=== PATIENT | male | born 1975 | race Caucasian/White ===

== ENCOUNTER 2017-09-13 11:31 | Emergency (ER) | payer MEDICAID ==
[~2017-09-13] VITALS: Ht 175.3 cm; Wt 72.6 kg
[~2017-09-13 11:31] MED LIST: CLEOCIN150 MG ORAL
[2017-09-13] MEDS ORDERED: DIPHENHYDRAMINE25 M1 ORAL (12:17)
[2017-09-13] MEDS ORDERED: PREDNISONE20 MG ORAL (12:17)
[2017-09-13 12:28] VITALS: BP 104/71
--- NOTE | 2017-09-14 13:49 | Emergency Room Report ---
History of Present Illness General Chief Complaint: Allergic Reaction Source: Patient, Medical Record Present Illness HPI 41-year-old male presents here for usp clearance. Patient brought in by [employer]. In handcuffs. Patient is here for allergic reaction to his face. Notes swelling around his right eye. Started yesterday. Denies any pain. Denies any itchiness. States he is using new laundry detergent. States this happened previously with untreated detergent. Denies any other food or drug allergies. Denies any photophobia or blurry vision. Denies any tongue swelling or throat swelling. No other aggravating relieving factors. Denies any other associated symptoms Allergies: Coded Allergies: NO KNOWN DRUG ALLERGIES (Unverified Allergy, Unknown, 08/11/14) Uncoded Allergies: MILDEW (Allergy, Unknown, 09/13/17) Patient History Past Medical History: none Past Surgical History: none Pertinent Family History: none Social History: Denies: smoking, alcohol use, drug use Immunizations: UTD Reviewed Nursing Documentation: PMH: Agreed, PSxH: Agreed Nursing Documentation-PMH Past Medical History: No History, Except For Hx Cardiac Problems: No - HIV, neurosyphilis, Enlarge lymph nodes Review of Systems All Other Systems: negative except mentioned in HPI Physical Exam Vital Signs Date Time Temp Pulse Resp B/P (MAP) Pulse Ox O2 Delivery O2 Flow Rate FiO2 09/13/17 11:31 98.1 132 18 108/68 94 Room Air 98.1 Sp02 EP Interpretation: reviewed, normal General Appearance: no apparent distress, alert, GCS 15, non-toxic Head: normocephalic, atraumatic Eyes: bilateral eye normal inspection, bilateral eye PERRL, bilateral eye EOMI ENT: hearing grossly normal, normal pharynx, no angioedema, normal voice Neck: full range of motion, supple/symm/no masses Respiratory: chest non-tender, lungs clear, normal breath sounds, speaking full sentences Cardiovascular #1: regular rate, rhythm, no edema Cardiovascular #2: 2+ carotid (R), 2+ carotid (L), 2+ radial (R), 2+ radial (L) , 2+ dorsalis pedis (R), 2+ dorsalis pedis (L) Gastrointestinal: normal bowel sounds, non tender, soft, non-distended, no guarding, no rebound Rectal: deferred Genitourinary: normal inspection, no CVA tenderness Musculoskeletal: back normal, gait/station normal, normal range of motion, non- tender Neurologic: alert, oriented x3, responsive, motor strength/tone normal, sensory intact, speech normal Psychiatric: judgement/insight normal, memory normal, mood/affect normal, no suicidal/homicidal ideation Reflexes: 3+ bicep (R), 3+ bicep (L), 3+ tricep (R), 3+ tricep (L), 3+ knee (R) , 3+ knee (L) Skin: normal color, other - swelling around R eye. no induration. no fluctuance Lymphatic: no adenopathy Medical Decision Making Diagnostic Impression: Primary Impression: Medical clearance for incarceration Additional Impression: Allergic reaction Qualified Codes: T78.40XA - Allergy, unspecified, initial encounter ER Course Hospital Course 15-year-old male presents to ED for and usp clearance. Noting swelling around the right eye. No pain Clinical course Patient placed on stretcher. Handcuffs. After initial history, physical exam reveals a male in no acute distress. There is some swelling around the right eye. No fluctuance. No induration or erythema. No ocular involvement. Remainder of Physical exam was unremarkable. Clinical presentation consistent with allergic reaction likely due to new soap detergent. Given prednisone and Benadryl here I believe patient be safely discharged into police custody. Diagnosis - medical clearance for incarceration, allergic reaction stable and discharged into police custody with Rx prednisone, benedryl. f/up with PMD. return to ED if symptoms recur/worsen Last Vital Signs Date Time Temp Pulse Resp B/P (MAP) Pulse Ox O2 Delivery O2 Flow Rate FiO2 09/13/17 12:28 97.3 102 18 104/71 98 Room Air Status: improved Disposition: D/C TO LAW ENFORCEMENT IN [facility] Condition: Stable Scripts Prednisone* (PREDNISONE*) 20 Mg Tablet 40 MG ORAL DAILY, #10 TAB Prov: KETAN SCHWARTZ M.D. 09/13/17 Diphenhydramine Hcl* (DIPHENHYDRAMINE HCL*) 25 Mg Capsule 25 MG ORAL Q6H Y for Itching, #30 CAP 0 Refills Prov: KETAN SCHWARTZ M.D. 09/13/17 Departure Forms: Residential Clearance Patient Instructions: Allergies KETAN SCHWARTZ M.D. 3, 2018 13:49
== END 2017-09-13 13:00 ==
LOC: EMR 11:45
DX: T78.40XA Allergy, unspecified, initial encounter (principal); X58.XXXA Exposure to other specified factors, initial encounter
CPT/HCPCS: 99283; J7512

== ENCOUNTER 2017-11-22 16:52 | Inpatient (IN) | payer MEDICARE, MEDICAID ==
[~2017-11-22] VITALS: Ht 175.3 cm; Wt 68.0 kg
[~2017-11-22 16:52] MED LIST changes: +DIPHENHYDRAMINE25 M1 ORAL; +PREDNISONE20 MG ORAL
[2017-11-22 17:00] VITALS: BP 112/76
[2017-11-22] MEDS ORDERED: Vancomycin 1 GM in NS 275 ML IV ONE (17:15)
[2017-11-22] MEDS ORDERED: BACTRIM DS TAB1 EAC1 ORAL (17:46)
[2017-11-22] MEDS ORDERED: COLACE100 MG ORAL (17:46)
[2017-11-22] MEDS ORDERED: NORVIR100 MG ORAL (17:46)
[2017-11-22] MEDS ORDERED: PREZISTA600 MG ORAL (17:46)
[2017-11-22] MEDS ORDERED: DAPSONE100 MG ORAL (17:46)
[2017-11-22] MEDS ORDERED: FLUCONAZOLE100 MG ORAL (17:46)
[2017-11-22] MEDS ORDERED: FERROUS SULFAT325 MG ORAL (17:46)
[2017-11-22] MEDS ORDERED: VIREAD300 MG ORAL (17:46)
[2017-11-22 17:56] LABS: BASOPHILS % (AUTO) 1.4 % (0.0-2.0); EOSINOPHILS % (AUTO) 3.2 % (0.0-3.0); HEMATOCRIT 41.4 % (42.0-52.0); HEMOGLOBIN 13.1 G/DL (14.2-18.0); LYMPHOCYTES % (AUTO) 12.9 % (20.0-45.0); MEAN CORPUSCULAR VOLUME 88 FL (80-99); MONOCYTES % (AUTO) 7.8 % (1.0-10.0); NEUTROPHILS % (AUTO) 74.7 % (45.0-75.0); PLATELET COUNT 387 K/UL (150-450); RED BLOOD COUNT 4.68 M/UL (4.70-6.10); RED CELL DISTRIBUTION WIDTH 13.9 % (11.6-14.8); WHITE BLOOD COUNT 15.3 K/UL (4.8-10.8)
[2017-11-22 18:07] LABS: ANION GAP 8 mmol/L (5-15); BLOOD UREA NITROGEN 32 mg/dL (7-18); CALCIUM 8.2 MG/DL (8.5-10.1); CARBON DIOXIDE 23 MMOL/L (21-32); CHLORIDE 96 MMOL/L (98-107); CREATININE 1.4 MG/DL (0.55-1.30); POTASSIUM 5.5 MMOL/L (3.5-5.1); SODIUM 127 MMOL/L (136-145)
[2017-11-22 18:12] LABS: ALANINE AMINOTRANSFERASE 15 U/L (12-78); ALBUMIN 2.2 G/DL (3.4-5.0); ALBUMIN/GLOBULIN RATIO 0.4 (1.0-2.7); ALKALINE PHOSPHATASE 70 U/L (46-116); ASPARTATE AMINO TRANSFERASE 26 U/L (15-37); BILIRUBIN,TOTAL 0.2 MG/DL (0.2-1.0)
[2017-11-22] MEDS ORDERED: Gadavist 7.5mMol/7.5ml vial IV PRN (18:30)
[2017-11-22] MEDS ORDERED: Morphine Sulfate 4mg/ml Inj IVP ONE (20:00)
[2017-11-22 20:09] VITALS: BP 100/68
[2017-11-22] MEDS ORDERED: Solu-MEDROL 125mg Inj IVP ONE (20:15)
[2017-11-22] MEDS ORDERED: DiphenhydrAMINE 50mg/ml Inj IVP ONE (20:15)
--- NOTE | 2017-11-22 20:17 | Diagnostic Imaging Report ---
EXAM: MR Right Lower Extremity Without and With Intravenous Contrast, Tibia and Fibula CLINICAL HISTORY: PAIN TECHNIQUE: Multiplanar magnetic resonance images of the right tibia and fibula without and with intravenous contrast. COMPARISON: No relevant prior studies available. FINDINGS: Limitations: Limited due to motion. Bones/joints: Focal 15 x 7 x 16 mm edema/enhancement in the lateral aspect of the proximal tibial metadiaphysis extending to the cortex, which may be osteomyelitis, neoplasm, or other etiology. No definite acute fracture. No dislocation. Soft tissues: Nonspecific mild focal edema/enhancement in the gastrocnemius muscle approximately 1 cm, cannot exclude neoplasm or infection/inflammation. Subcutaneous edema. No definite discrete abscess collection. Subcutaneous/cutaneous thickening, cannot exclude neoplasm. IMPRESSION: 1. Focal 15 x 7 x 16 mm edema/enhancement in the lateral aspect of the proximal tibial metadiaphysis extending to the cortex, which may be osteomyelitis, neoplasm, or other etiology. 2. Nonspecific mild focal edema/enhancement in the gastrocnemius muscle approximately 1 cm, cannot exclude neoplasm or infection/inflammation. 3. Subcutaneous edema. No definite discrete abscess collection. Subcutaneous/cutaneous thickening, cannot exclude neoplasm.
[2017-11-22 20:37] VITALS: BP 114/71
--- NOTE | 2017-11-22 20:40 | Emergency Room Report ---
History of Present Illness General Chief Complaint: General Complaint Source: Patient Present Illness HPI 41-year-old male presents ED for evaluation. Patient referred from urgent care clinic. Urgent care clinic called stating that this patient is coming in for a cellulitis to his right leg. Has been there for many months now but not improving. Has taken multiple courses of antibiotics without improvement. Pain is throbbing, 8 out of 10, nonradiating. Denies fevers or chills. History of HIV is not compliant with his medication. Denies chest pain or shortness of breath. No other aggravating relieving factors. Denies any other associated symptoms Allergies: Coded Allergies: NO KNOWN DRUG ALLERGIES (Unverified Allergy, Unknown, 08/11/14) Uncoded Allergies: MILDEW (Allergy, Unknown, 09/13/17) Patient History Past Medical History: none Past Surgical History: none Pertinent Family History: none Social History: Denies: smoking, alcohol use, drug use Immunizations: UTD Reviewed Nursing Documentation: PMH: Agreed; PSxH: Agreed Nursing Documentation-PMH Past Medical History: No History, Except For Hx Cardiac Problems: No - HIV, neurosyphilis, Enlarge lymph nodes Review of Systems All Other Systems: negative except mentioned in HPI Physical Exam Vital Signs Date Time Temp Pulse Resp B/P (MAP) Pulse Ox O2 Delivery O2 Flow Rate FiO2 11/22/17 16:56 98.1 110 22 112/76 96 Room Air 98.1 Sp02 EP Interpretation: reviewed, normal General Appearance: no apparent distress, alert, GCS 15, non-toxic Head: normocephalic, atraumatic Eyes: bilateral eye normal inspection, bilateral eye PERRL ENT: hearing grossly normal, normal pharynx, no angioedema, normal voice Neck: full range of motion, supple/symm/no masses Respiratory: chest non-tender, lungs clear, normal breath sounds, speaking full sentences Cardiovascular #1: regular rate, rhythm, no edema Cardiovascular #2: 2+ carotid (R), 2+ carotid (L), 2+ radial (R), 2+ radial (L) , 2+ dorsalis pedis (R), 2+ dorsalis pedis (L) Gastrointestinal: normal bowel sounds, non tender, soft, non-distended, no guarding, no rebound Rectal: deferred Genitourinary: normal inspection, no CVA tenderness Musculoskeletal: back normal, gait/station normal, normal range of motion, swelling Neurologic: alert, oriented x3, responsive, motor strength/tone normal, sensory intact, speech normal Psychiatric: judgement/insight normal, memory normal, mood/affect normal, no suicidal/homicidal ideation Reflexes: 3+ bicep (R), 3+ bicep (L), 3+ tricep (R), 3+ tricep (L), 3+ knee (R) , 3+ knee (L) Skin: other Lymphatic: no adenopathy, other - Multiple enlarged pustular raised lesions noted to the anterior surface of the right lower extremity. No fluctuance or discharge Medical Decision Making Diagnostic Impression: Primary Impression: Cellulitis of right lower extremity ER Course Hospital Course 41-year-old male presents to ED with redness, swelling to RLE Differential diagnoses include: Cellulitis, DVT, abscess, rash. Clinical course Patient placed on stretcher. After initial history, physical exam reveals male in no acute distress. On exam there is a large area of multiple pustular heads raised, indurated and erythematous to the right anterior mora. Patient states it is been there for many months now. Labs reviewed - leukocytosis, Hb/Hct stable, Na 127, K 5.5 Discussed case with surgery Dr Dover; he recommended MRI to look for possible neoplasm versus osteomyelitis MRI shows edema/enhancement in the lateral aspect of the proximal tibial metadiaphysis extending to the cortex, which may be osteomyelitis, neoplasm vancomycin given. Case discussed with Dr Almodovar and he agreed to accept the patient to his service for further care and support Diagnosis - cellulitis of right lower extremity Patient admitted to floor in serious condition Labs Test 11/22/17 17:38 White Blood Count 15.3 K/UL (4.8-10.8) Red Blood Count 4.68 M/UL (4.70-6.10) Hemoglobin 13.1 G/DL (14.2-18.0) Hematocrit 41.4 % (42.0-52.0) Mean Corpuscular Volume 88 FL (80-99) Mean Corpuscular Hemoglobin 28.0 PG (27.0-31.0) Mean Corpuscular Hemoglobin Concent 31.7 G/DL (32.0-36.0) Red Cell Distribution Width 13.9 % (11.6-14.8) Platelet Count 387 K/UL (150-450) Mean Platelet Volume 6.3 FL (6.5-10.1) Neutrophils (%) (Auto) 74.7 % (45.0-75.0) Lymphocytes (%) (Auto) 12.9 % (20.0-45.0) Monocytes (%) (Auto) 7.8 % (1.0-10.0) Eosinophils (%) (Auto) 3.2 % (0.0-3.0) Basophils (%) (Auto) 1.4 % (0.0-2.0) Sodium Level 127 MMOL/L (136-145) Potassium Level 5.5 MMOL/L (3.5-5.1) Chloride Level 96 MMOL/L (98-107) Carbon Dioxide Level 23 MMOL/L (21-32) Anion Gap 8 mmol/L (5-15) Blood Urea Nitrogen 32 mg/dL (7-18) Creatinine 1.4 MG/DL (0.55-1.30) Estimat Glomerular Filtration Rate 55.6 mL/min (>60) Glucose Level 88 MG/DL (74-106) Lactic Acid Level 0.80 mmol/L (0.66-2.22) Calcium Level 8.2 MG/DL (8.5-10.1) Total Bilirubin 0.2 MG/DL (0.2-1.0) Aspartate Amino Transf (AST/SGOT) 26 U/L (15-37) Alanine Aminotransferase (ALT/SGPT) 15 U/L (12-78) Alkaline Phosphatase 70 U/L (46-116) Total Protein 7.3 G/DL (6.4-8.2) Albumin 2.2 G/DL (3.4-5.0) Globulin 5.1 g/dL Albumin/Globulin Ratio 0.4 (1.0-2.7) CT/MRI/US Diagnostic Results CT/MRI/US Diagnostic Results : Imaging Test Ordered: MRI RLE Impression Focal 15 x 7 x 16 mm edema/enhancement in the lateral aspect of the proximal tibial metadiaphysis extending to the cortex, which may be osteomyelitis, neoplasm, or other etiology. 2. Nonspecific mild focal edema/enhancement in the gastrocnemius muscle approximately 1 cm, cannot exclude neoplasm or infection/inflammation. 3. Subcutaneous edema. No definite discrete abscess collection. Subcutaneous/ cutaneous thickening, cannot exclude neoplasm. Last Vital Signs Date Time Temp Pulse Resp B/P (MAP) Pulse Ox O2 Delivery O2 Flow Rate FiO2 11/22/17 20:18 97.8 11/22/17 20:09 106 18 100/68 97 Room Air Status: improved Disposition: ADMITTED INPATIENT Condition: Serious Referrals: NON PHYSICIAN (PCP) José Luis Romero MD November 22, 2017 20:40
[2017-11-22] MEDS ORDERED: Morphine Sulfate 4mg/ml Inj IVP PRN (21:30)
[2017-11-22] MEDS: Albuterol/Ipratropium 3ml neb HHN PRN (23:02)
[2017-11-22 23:13] LABS: APPEARANCE,URINE CLEAR; BILIRUBIN, URINE NEGATIVE (NEGATIVE); COLOR,URINE PALE YELLOW; GLUCOSE, URINE (UA) NEGATIVE (NEGATIVE); KETONES,URINE NEGATIVE (NEGATIVE); LEUKOCYTE ESTERASE ,URINE NEGATIVE (NEGATIVE); NITRITE,URINE NEGATIVE (NEGATIVE); PH,URINE 6 (4.5-8.0); PROTEIN,URINE NEGATIVE (NEGATIVE); UROBILINOGEN,URINE NORMAL MG/DL (0.0-1.0)
[2017-11-22] MEDS: Piperacillin/Tazobactam 4.5 GM in NS 110 ML IVPB SCH (23:44)
[2017-11-23] MEDS: Morphine Sulfate 4mg/ml Inj IVP PRN ×3 (00:58→15:17)
[2017-11-23 04:12] VITALS: BP 97/57
[2017-11-23] MEDS: Albuterol/Ipratropium 3ml neb HHN PRN (04:15)
[2017-11-23] MEDS: Vancomycin 750mg/NS 250ml IVPB SCH ×2 (04:39→17:57)
[2017-11-23] MEDS: Piperacillin/Tazobactam 4.5 GM in NS 110 ML IVPB SCH ×3 (06:08→23:04)
[2017-11-23 07:28] LABS: BASOPHILS % (AUTO) 0.8 % (0.0-2.0); EOSINOPHILS % (AUTO) 3.3 % (0.0-3.0); HEMATOCRIT 35.5 % (42.0-52.0); HEMOGLOBIN 11.5 G/DL (14.2-18.0); LYMPHOCYTES % (AUTO) 14.7 % (20.0-45.0); MEAN CORPUSCULAR VOLUME 89 FL (80-99); MONOCYTES % (AUTO) 6.9 % (1.0-10.0); NEUTROPHILS % (AUTO) 74.3 % (45.0-75.0); PLATELET COUNT 275 K/UL (150-450); RED CELL DISTRIBUTION WIDTH 13.6 % (11.6-14.8); WHITE BLOOD COUNT 12.7 K/UL (4.8-10.8)
[2017-11-23 07:49] LABS: ALANINE AMINOTRANSFERASE 15 U/L (12-78); ALBUMIN 1.8 G/DL (3.4-5.0); ALKALINE PHOSPHATASE 57 U/L (46-116); ANION GAP 5 mmol/L (5-15); ASPARTATE AMINO TRANSFERASE 18 U/L (15-37); BILIRUBIN,DIRECT < 0.1 MG/DL (0.0-0.3); BILIRUBIN,TOTAL 0.2 MG/DL (0.2-1.0); BLOOD UREA NITROGEN 18 mg/dL (7-18); CALCIUM 7.7 MG/DL (8.5-10.1); CARBON DIOXIDE 29 MMOL/L (21-32); CHLORIDE 102 MMOL/L (98-107); CREATININE 1.3 MG/DL (0.55-1.30); POTASSIUM 4.5 MMOL/L (3.5-5.1); SODIUM 135 MMOL/L (136-145)
[2017-11-23 08:00] VITALS: BP 105/66
--- NOTE | 2017-11-23 08:47 | Diagnostic Imaging Report ---
INDICATION: Cough COMPARISON: Chest x-ray dated 08/11/14 FINDINGS: Single frontal view demonstrates a normal cardiomediastinal silhouette. Opacification of the right mid to lower lung zone with a small pleural effusion. Patchy centrilobular nodules seen within the left lower lung zone. The visualized osseous structures are within normal limits. IMPRESSION: Opacification of the right mid to lower lung zone with a small pleural effusion. Patchy centrilobular nodules seen within the left lower lung zone.
[2017-11-23] MEDS ORDERED: Heparin 5000 units/ml inj SUBQ SCH (09:00)
--- NOTE | 2017-11-23 09:28 | Consultation ---
History of Present Illness General Date patient seen: November 23, 2017 Chief Complaint: General Complaint Reason for Consultation: right lower extremity wound Present Illness HPI 41 year old male with history of HIV presented with complaints of RLE pain and edema. States that 8 months ago began to note a wound on right leg. Since has been worsening. States that when he gets "Bactrim" it gets better a little but when not on bactrim it gets worse again. states he has been looking online and believes it to be cellulitis. surgery called to evaluate wound on right leg given extensive. patient seen and wound evaluated. very concerning because this looks like a tumor. 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 He was told he would need chemotherapy. since it seems as he has been in denial and has been telling people it is an infection that he knows will and has gotten better prior with "Bactrim" Allergies: Coded Allergies: NO KNOWN DRUG ALLERGIES (Unverified Allergy, Unknown, 08/11/14) Uncoded Allergies: MILDEW (Allergy, Unknown, 09/13/17) Medication History Scheduled Clindamycin HCl (Clindamycin HCl), 150 MG ORAL EVERY 6 HOURS Dapsone* (Dapsone*), 100 MG ORAL DAILY, (Reported) Darunavir Ethanolate* (Prezista*), 800 MG ORAL DAILY, (Reported) Docusate Sodium* (Colace*), 100 MG ORAL DAILY, (Reported) Ferrous Sulfate* (Ferrous Sulfate*), 325 MG ORAL BID, (Reported) Fluconazole (Fluconazole), 200 MG ORAL DAILY, (Reported) Prednisone* (Prednisone*), 40 MG ORAL DAILY Ritonavir* (Norvir*), 100 MG ORAL DAILY, (Reported) Tenofovir Disoproxil Fumarate* (Viread*), 300 MG ORAL DAILY, (Reported) Trimethoprim/Sulfamethoxazole 160/800* (Bactrim Ds Tablet*), 1 TAB ORAL DAILY, ( Reported) Scheduled PRN Diphenhydramine Hcl* (Diphenhydramine Hcl*), 25 MG ORAL Q6H PRN for Itching Patient History History Provided By: Patient, Medical Record, PMD Healthcare decision maker N Resuscitation status Full Code Advanced Directive on File No Past Medical/Surgical History Past Medical/Surgical History: (1) Kaposis sarcoma (2) Dyspnea (3) Dyspnea (4) Hyponatremia (5) Allergic reaction (6) Medical clearance for incarceration (7) Leg pain (8) Cellulitis (9) Cellulitis of right lower extremity Review of Systems All Other Systems: negative except mentioned in HPI Physical Exam General Appearance: no apparent distress Lines, tubes and drains: peripheral HEENT: normocephalic Neck: non-tender Respiratory/Chest: chest wall non-tender, lungs clear, normal breath sounds, no respiratory distress, no accessory muscle use Cardiovascular/Chest: normal peripheral pulses, normal rate Abdomen: normal bowel sounds, non tender, soft, no organomegaly, no mass Extremities: other - see wound photos of right leg Skin Exam: warm/dry Neurologic: alert, oriented x 3, responsive Last 24 Hour Vital Signs Date Time Temp Pulse Resp B/P (MAP) Pulse Ox O2 Delivery O2 Flow Rate FiO2 11/23/17 08:34 94 18 Room Air 11/23/17 06:37 20 95 Nasal Cannula 2.0 11/23/17 04:22 89 20 99 Room Air 21 11/23/17 04:16 81 18 97 Room Air 21 11/23/17 04:12 97.9 104 20 97/57 93 Room Air 97.9 11/23/17 01:28 97.5 11/23/17 00:58 97.5 11/22/17 23:17 77 18 99 Room Air 21 11/22/17 23:02 66 18 98 Room Air 21 11/22/17 20:40 97.5 106 20 114/71 96 Room Air 97.5 11/22/17 20:37 97.5 106 20 114/71 96 Room Air 97.5 11/22/17 20:18 97.8 11/22/17 20:09 97.8 106 18 100/68 97 Room Air 97.8 11/22/17 17:00 98.1 80 22 112/76 96 Room Air 98.1 11/22/17 16:56 98.1 110 22 112/76 96 Room Air 98.1 Intake and Output 11/22/17 11/23/17 19:00 07:00 Intake Total 500 ml Output Total 0 ml 1200 ml Balance 0 ml -700 ml Intake IV Total 500 ml Output Urine Total 0 ml 1200 ml # Voids 4 Laboratory Tests Test 11/22/17 17:38 11/22/17 22:50 11/23/17 05:35 White Blood Count 15.3 K/UL (4.8-10.8) H 12.7 K/UL (4.8-10.8) H Red Blood Count 4.68 M/UL (4.70-6.10) L 4.00 M/UL (4.70-6.10) L Hemoglobin 13.1 G/DL (14.2-18.0) L 11.5 G/DL (14.2-18.0) L Hematocrit 41.4 % (42.0-52.0) L 35.5 % (42.0-52.0) L Mean Corpuscular Volume 88 FL (80-99) 89 FL (80-99) Mean Corpuscular Hemoglobin 28.0 PG (27.0-31.0) 28.7 PG (27.0-31.0) Mean Corpuscular Hemoglobin Concent 31.7 G/DL (32.0-36.0) L 32.3 G/DL (32.0-36.0) Red Cell Distribution Width 13.9 % (11.6-14.8) 13.6 % (11.6-14.8) Platelet Count 387 K/UL (150-450) 275 K/UL (150-450) Mean Platelet Volume 6.3 FL (6.5-10.1) L 6.1 FL (6.5-10.1) L Neutrophils (%) (Auto) 74.7 % (45.0-75.0) 74.3 % (45.0-75.0) Lymphocytes (%) (Auto) 12.9 % (20.0-45.0) L 14.7 % (20.0-45.0) L Monocytes (%) (Auto) 7.8 % (1.0-10.0) 6.9 % (1.0-10.0) Eosinophils (%) (Auto) 3.2 % (0.0-3.0) H 3.3 % (0.0-3.0) H Basophils (%) (Auto) 1.4 % (0.0-2.0) 0.8 % (0.0-2.0) Sodium Level 127 MMOL/L (136-145) L 135 MMOL/L (136-145) L Potassium Level 5.5 MMOL/L (3.5-5.1) H 4.5 MMOL/L (3.5-5.1) Chloride Level 96 MMOL/L (98-107) L 102 MMOL/L (98-107) Carbon Dioxide Level 23 MMOL/L (21-32) 29 MMOL/L (21-32) Anion Gap 8 mmol/L (5-15) 5 mmol/L (5-15) Blood Urea Nitrogen 32 mg/dL (7-18) H 18 mg/dL (7-18) Creatinine 1.4 MG/DL (0.55-1.30) H 1.3 MG/DL (0.55-1.30) Estimat Glomerular Filtration Rate 55.6 mL/min (>60) > 60 mL/min (>60) Glucose Level 88 MG/DL (74-106) 98 MG/DL (74-106) Lactic Acid Level 0.80 mmol/L (0.66-2.22) Calcium Level 8.2 MG/DL (8.5-10.1) L 7.7 MG/DL (8.5-10.1) L Total Bilirubin 0.2 MG/DL (0.2-1.0) 0.2 MG/DL (0.2-1.0) Aspartate Amino Transf (AST/SGOT) 26 U/L (15-37) 18 U/L (15-37) Alanine Aminotransferase (ALT/SGPT) 15 U/L (12-78) 15 U/L (12-78) Alkaline Phosphatase 70 U/L (46-116) 57 U/L (46-116) Total Protein 7.3 G/DL (6.4-8.2) 6.0 G/DL (6.4-8.2) L Albumin 2.2 G/DL (3.4-5.0) L 1.8 G/DL (3.4-5.0) L Globulin 5.1 g/dL Albumin/Globulin Ratio 0.4 (1.0-2.7) L Urine Color Pale yellow Urine Appearance Clear Urine pH 6 (4.5-8.0) Urine Specific [place] 1.020 (1.005-1.035) Urine Protein Negative (NEGATIVE) Urine Glucose (UA) Negative (NEGATIVE) Urine Ketones Negative (NEGATIVE) Urine Occult Blood Negative (NEGATIVE) Urine Nitrite Negative (NEGATIVE) Urine Bilirubin Negative (NEGATIVE) Urine Urobilinogen Normal MG/DL (0.0-1.0) Urine Leukocyte Esterase Negative (NEGATIVE) Urine Random Sodium 30 mmol/L (20-110) Urine Creatinine 116.7 MG/DL (30.0-125.0) Magnesium Level 1.8 MG/DL (1.8-2.4) Direct Bilirubin < 0.1 MG/DL (0.0-0.3) Height (Feet): 5 Height (Inches): 9.00 Weight (Pounds): 150 Medications Current Medications Medications (Trade) Dose Ordered Sig/Roverto Route PRN Reason Start Time Stop Time Status Last Admin Dose Admin Acetaminophen (Tylenol) 650 mg Q6H PRN ORAL Mild Pain/Temp > 100.5 11/22/17 21:30 12/22/17 21:29 Albuterol/ Ipratropium (Albuterol/ Ipratropium) 3 ml Q4H PRN HHN Shortness of Breath 11/22/17 21:30 11/27/17 21:29 11/23/17 04:15 Diphenhydramine HCl (Benadryl) 25 mg Q6H PRN ORAL Itching 11/22/17 21:30 12/22/17 21:29 Heparin Sodium (Porcine) (Heparin 5000 units/ml) 5,000 units EVERY 12 HOURS SUBQ 11/23/17 09:00 12/23/17 08:59 11/23/17 09:02 Morphine Sulfate (Morphine Sulfate) 2 mg Q4H PRN IVP Moderate Pain (Pain Scale 4-6) 11/22/17 21:30 11/29/17 21:29 Morphine Sulfate (Morphine Sulfate) 4 mg Q4H PRN IVP Severe Pain (Pain Scale 7-10) 11/22/17 21:30 11/29/17 21:29 11/23/17 08:58 Ondansetron HCl (Zofran) 4 mg Q6H PRN IVP Nausea & Vomiting 11/22/17 21:30 12/22/17 21:29 Piperacillin Sod/ Tazobactam Sod 4.5 gm/Sodium Chloride 110 ml @ 27.5 mls/hr Q8H IVPB 11/22/17 23:00 5/18/18 22:59 11/23/17 06:08 Sodium Chloride 1,000 ml @ 125 mls/hr Q8H IV 11/22/17 22:00 11/23/17 21:59 11/23/17 06:07 Vancomycin HCl (Vanco rx to dose) 1 ea DAILY PRN MISC Per rx protocol 11/22/17 21:30 12/22/17 21:29 Vancomycin/Sodium Chloride 250 ml @ 166.667 mls/hr Q12H IVPB 11/23/17 05:00 11/28/17 04:59 11/23/17 04:39 Assessment/Plan Problem List: (1) Kaposis sarcoma Assessment & Plan: 41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 possible superimposed infection as well. mild cellulitis in leg and some edema. afebrile, HD stable, leukocytosis improving. -explained to patient how important it is for him to follow up with oncologist as an outpatient for treatment of this as he has been instructed two months ago -explained that abx would help with infection if superimposed but underlying etiology is the tumor -no acute surgical intervention needed -no biopsy needed given had one two months ago and diagnosis made at [facility] to d/c from surgical standpoint. follow up with oncologist as an outpatient. ICD Codes: C46.9 - Kaposi's sarcoma, unspecified SNOMED: [id number] Status: stable Curtis Dover November 23, 2017 09:28
--- NOTE | 2017-11-23 10:26 | Diagnostic Imaging Report ---
INDICATION: Increasing creatinine TECHNIQUE: Real time imaging of the kidneys is performed in sagittal and transverse projections. COMPARISON: None FINDINGS: The kidneys are normal in size, with the left kidney measuring 12 cm and the right measuring 11.4 cm. There is no evidence of hydronephrosis or solid mass lesions. 9 mm left renal cyst. No sonographic evidence of renal calculi. The bladder is within normal. Small free fluid. IMPRESSION: 9 mm left renal cyst. Otherwise normal renal ultrasound.
--- NOTE | 2017-11-23 11:13 | Infectious Diseases Prog Note ---
Assessment/Plan Assessment/Plan Full consult dictated: A) 1) right leg cellulitis, [place], ? osteomyelitis, leukocytosis 2) hiv, aids, pmh noted 3) allergies - nkda P) 1) vancomycin, zosyn 2) consider bone scan, check sr, crp, labs, bc 3) hem/onc evaluation 4) anti-retroviral therapy - norvir, viread and prezista 5) thank you Subjective Allergies: Coded Allergies: NO KNOWN DRUG ALLERGIES (Unverified Allergy, Unknown, 08/11/14) Uncoded Allergies: MILDEW (Allergy, Unknown, 09/13/17) Objective Vital Signs Last 24 Hour Vital Signs Date Time Temp Pulse Resp B/P (MAP) Pulse Ox O2 Delivery O2 Flow Rate FiO2 11/23/17 08:34 94 18 Room Air 11/23/17 06:37 20 95 Nasal Cannula 2.0 11/23/17 04:22 89 20 99 Room Air 21 11/23/17 04:16 81 18 97 Room Air 21 11/23/17 04:12 97.9 104 20 97/57 93 Room Air 97.9 11/23/17 01:28 97.5 11/23/17 00:58 97.5 11/22/17 23:17 77 18 99 Room Air 21 11/22/17 23:02 66 18 98 Room Air 21 11/22/17 20:40 97.5 106 20 114/71 96 Room Air 97.5 11/22/17 20:37 97.5 106 20 114/71 96 Room Air 97.5 11/22/17 20:18 97.8 11/22/17 20:09 97.8 106 18 100/68 97 Room Air 97.8 11/22/17 17:00 98.1 80 22 112/76 96 Room Air 98.1 11/22/17 16:56 98.1 110 22 112/76 96 Room Air 98.1 Height (Feet): 5 Height (Inches): 9.00 Weight (Pounds): 150 Laboratory Tests Test 11/22/17 17:38 11/22/17 22:50 11/23/17 05:35 White Blood Count 15.3 K/UL (4.8-10.8) H 12.7 K/UL (4.8-10.8) H Red Blood Count 4.68 M/UL (4.70-6.10) L 4.00 M/UL (4.70-6.10) L Hemoglobin 13.1 G/DL (14.2-18.0) L 11.5 G/DL (14.2-18.0) L Hematocrit 41.4 % (42.0-52.0) L 35.5 % (42.0-52.0) L Mean Corpuscular Volume 88 FL (80-99) 89 FL (80-99) Mean Corpuscular Hemoglobin 28.0 PG (27.0-31.0) 28.7 PG (27.0-31.0) Mean Corpuscular Hemoglobin Concent 31.7 G/DL (32.0-36.0) L 32.3 G/DL (32.0-36.0) Red Cell Distribution Width 13.9 % (11.6-14.8) 13.6 % (11.6-14.8) Platelet Count 387 K/UL (150-450) 275 K/UL (150-450) Mean Platelet Volume 6.3 FL (6.5-10.1) L 6.1 FL (6.5-10.1) L Neutrophils (%) (Auto) 74.7 % (45.0-75.0) 74.3 % (45.0-75.0) Lymphocytes (%) (Auto) 12.9 % (20.0-45.0) L 14.7 % (20.0-45.0) L Monocytes (%) (Auto) 7.8 % (1.0-10.0) 6.9 % (1.0-10.0) Eosinophils (%) (Auto) 3.2 % (0.0-3.0) H 3.3 % (0.0-3.0) H Basophils (%) (Auto) 1.4 % (0.0-2.0) 0.8 % (0.0-2.0) Sodium Level 127 MMOL/L (136-145) L 135 MMOL/L (136-145) L Potassium Level 5.5 MMOL/L (3.5-5.1) H 4.5 MMOL/L (3.5-5.1) Chloride Level 96 MMOL/L (98-107) L 102 MMOL/L (98-107) Carbon Dioxide Level 23 MMOL/L (21-32) 29 MMOL/L (21-32) Anion Gap 8 mmol/L (5-15) 5 mmol/L (5-15) Blood Urea Nitrogen 32 mg/dL (7-18) H 18 mg/dL (7-18) Creatinine 1.4 MG/DL (0.55-1.30) H 1.3 MG/DL (0.55-1.30) Estimat Glomerular Filtration Rate 55.6 mL/min (>60) > 60 mL/min (>60) Glucose Level 88 MG/DL (74-106) 98 MG/DL (74-106) Lactic Acid Level 0.80 mmol/L (0.66-2.22) Calcium Level 8.2 MG/DL (8.5-10.1) L 7.7 MG/DL (8.5-10.1) L Total Bilirubin 0.2 MG/DL (0.2-1.0) 0.2 MG/DL (0.2-1.0) Aspartate Amino Transf (AST/SGOT) 26 U/L (15-37) 18 U/L (15-37) Alanine Aminotransferase (ALT/SGPT) 15 U/L (12-78) 15 U/L (12-78) Alkaline Phosphatase 70 U/L (46-116) 57 U/L (46-116) Total Protein 7.3 G/DL (6.4-8.2) 6.0 G/DL (6.4-8.2) L Albumin 2.2 G/DL (3.4-5.0) L 1.8 G/DL (3.4-5.0) L Globulin 5.1 g/dL Albumin/Globulin Ratio 0.4 (1.0-2.7) L Urine Color Pale yellow Urine Appearance Clear Urine pH 6 (4.5-8.0) Urine Specific [place] 1.020 (1.005-1.035) Urine Protein Negative (NEGATIVE) Urine Glucose (UA) Negative (NEGATIVE) Urine Ketones Negative (NEGATIVE) Urine Occult Blood Negative (NEGATIVE) Urine Nitrite Negative (NEGATIVE) Urine Bilirubin Negative (NEGATIVE) Urine Urobilinogen Normal MG/DL (0.0-1.0) Urine Leukocyte Esterase Negative (NEGATIVE) Urine Random Sodium 30 mmol/L (20-110) Urine Creatinine 116.7 MG/DL (30.0-125.0) Magnesium Level 1.8 MG/DL (1.8-2.4) Direct Bilirubin < 0.1 MG/DL (0.0-0.3) Current Medications Medications (Trade) Dose Ordered Sig/Roverto Route PRN Reason Start Time Stop Time Status Last Admin Dose Admin Acetaminophen (Tylenol) 650 mg Q6H PRN ORAL Mild Pain/Temp > 100.5 11/22/17 21:30 12/22/17 21:29 Albuterol/ Ipratropium (Albuterol/ Ipratropium) 3 ml Q4H PRN HHN Shortness of Breath 11/22/17 21:30 11/27/17 21:29 11/23/17 04:15 Diphenhydramine HCl (Benadryl) 25 mg Q6H PRN ORAL Itching 11/22/17 21:30 12/22/17 21:29 Heparin Sodium (Porcine) (Heparin 5000 units/ml) 5,000 units EVERY 12 HOURS SUBQ 11/23/17 09:00 12/23/17 08:59 11/23/17 09:02 Morphine Sulfate (Morphine Sulfate) 2 mg Q4H PRN IVP Moderate Pain (Pain Scale 4-6) 11/22/17 21:30 11/29/17 21:29 Morphine Sulfate (Morphine Sulfate) 4 mg Q4H PRN IVP Severe Pain (Pain Scale 7-10) 11/22/17 21:30 11/29/17 21:29 11/23/17 08:58 Ondansetron HCl (Zofran) 4 mg Q6H PRN IVP Nausea & Vomiting 11/22/17 21:30 12/22/17 21:29 Piperacillin Sod/ Tazobactam Sod 4.5 gm/Sodium Chloride 110 ml @ 27.5 mls/hr Q8H IVPB 11/22/17 23:00 11/29/17 22:59 11/23/17 06:08 Sodium Chloride 1,000 ml @ 125 mls/hr Q8H IV 11/22/17 22:00 11/23/17 21:59 11/23/17 06:07 Vancomycin HCl (Vanco rx to dose) 1 ea DAILY PRN MISC Per rx protocol 11/22/17 21:30 12/22/17 21:29 Vancomycin/Sodium Chloride 250 ml @ 166.667 mls/hr Q12H IVPB 11/23/17 05:00 11/28/17 04:59 11/23/17 04:39 LIVIER AMAYA November 23, 2017 11:13
--- NOTE | 2017-11-23 11:40 | History and Physical ---
History of Present Illness General Date patient seen: November 23, 2017 Time patient seen: 11:40 Reason for Hospitalization: RLE cellulitis Present Illness HPI 41y/o male with pmh of HIV/AIDS (noncompliant with HAART) who presents with RLE swelling/pain/redness. Pt states that 8 months he noted wound/skin lesions on RLE which has been progressively worsening. He states that he has been given antibiotics such as keflex for it but bactrim IV works the best. Pt notes having had a biopsy of skin lesions and was diagnosed with Kaposi Sarcoma (pt does have path report). C/o subjective fevers/chills. Denies n/v, d/c, chest pain, SOB, abd pain. In ED, pt had MRI tib/fib which showed focal 15 x 7 x 16 mm edema/enhancement in the lateral aspect of the proximal tibial metadiaphysis extending to the cortex, which may be osteomyelitis, neoplasm, or other etiology. There was concern for sepsis given leukocytosis, tachycardia. Pt given vanco. Allergies: Coded Allergies: NO KNOWN DRUG ALLERGIES (Unverified Allergy, Unknown, 08/11/14) Uncoded Allergies: MILDEW (Allergy, Unknown, 09/13/17) Medication History Scheduled Clindamycin HCl (Clindamycin HCl), 150 MG ORAL EVERY 6 HOURS Dapsone* (Dapsone*), 100 MG ORAL DAILY, (Reported) Darunavir Ethanolate* (Prezista*), 800 MG ORAL DAILY, (Reported) Docusate Sodium* (Colace*), 100 MG ORAL DAILY, (Reported) Ferrous Sulfate* (Ferrous Sulfate*), 325 MG ORAL BID, (Reported) Fluconazole (Fluconazole), 200 MG ORAL DAILY, (Reported) Prednisone* (Prednisone*), 40 MG ORAL DAILY Ritonavir* (Norvir*), 100 MG ORAL DAILY, (Reported) Tenofovir Disoproxil Fumarate* (Viread*), 300 MG ORAL DAILY, (Reported) Trimethoprim/Sulfamethoxazole 160/800* (Bactrim Ds Tablet*), 1 TAB ORAL DAILY, ( Reported) Scheduled PRN Diphenhydramine Hcl* (Diphenhydramine Hcl*), 25 MG ORAL Q6H PRN for Itching Patient History History Provided By: Patient, Medical Record Healthcare decision maker N Resuscitation status Full Code Advanced Directive on File No Past Medical/Surgical History Past Medical/Surgical History: (1) HIV/AIDS (2) Kaposi sarcoma Family History Family History: Patient reports no known family medical history. Social History Social History: (1) No significant social history Review of Systems Constitutional: Reports: malaise, weakness Eye: Reports: no symptoms ENT: Reports: no symptoms Respiratory: Reports: no symptoms Cardiovascular: Reports: no symptoms Gastrointestinal: Reports: no symptoms Genitourinary: Reports: no symptoms Musculoskeletal: Reports: muscle pain Skin: Reports: lesions Psychiatric: Reports: no symptoms Neurological: Reports: no symptoms Endocrine: Reports: no symptoms Hematologic/Lymphatic: Reports: no symptoms Physical Exam Physical Exam Narrative General: alert, cooperative, no distress, appears stated age Head: normocephalic, without obvious abnormality, atraumatic Eyes: conjunctivae/corneas clear. PERRL, EOM's intact Throat: lips, mucosa, and tongue normal. MMM Neck: supple, symmetrical, trachea midline, and no JVD Lungs: clear to auscultation bilaterally Heart: regular rate and rhythm, S1, S2 normal, no murmur, click, rub or gallop Abdomen: soft, non-tender, non-distended, bowel sounds normal; no masses or organomegaly Extremities: RLE w/ TTP/erythema/edema w/ raised lesions (see photos) Pulses: 2+ and symmetric Neurologic: grossly normal, no focal deficits Last 24 Hour Vital Signs Date Time Temp Pulse Resp B/P (MAP) Pulse Ox O2 Delivery O2 Flow Rate FiO2 11/23/17 08:34 94 18 Room Air 11/23/17 06:37 20 95 Nasal Cannula 2.0 11/23/17 04:22 89 20 99 Room Air 21 11/23/17 04:16 81 18 97 Room Air 21 11/23/17 04:12 97.9 104 20 97/57 93 Room Air 97.9 11/23/17 01:28 97.5 11/23/17 00:58 97.5 11/22/17 23:17 77 18 99 Room Air 21 11/22/17 23:02 66 18 98 Room Air 21 11/22/17 20:40 97.5 106 20 114/71 96 Room Air 97.5 11/22/17 20:37 97.5 106 20 114/71 96 Room Air 97.5 11/22/17 20:18 97.8 5/11/18 20:09 97.8 106 18 100/68 97 Room Air 97.8 11/22/17 17:00 98.1 80 22 112/76 96 Room Air 98.1 11/22/17 16:56 98.1 110 22 112/76 96 Room Air 98.1 Intake and Output 11/22/17 11/23/17 19:00 07:00 Intake Total 500 ml Output Total 0 ml 1200 ml Balance 0 ml -700 ml Intake IV Total 500 ml Output Urine Total 0 ml 1200 ml # Voids 4 Laboratory Tests Test 11/22/17 17:38 11/22/17 22:50 11/23/17 05:35 White Blood Count 15.3 K/UL (4.8-10.8) H 12.7 K/UL (4.8-10.8) H Red Blood Count 4.68 M/UL (4.70-6.10) L 4.00 M/UL (4.70-6.10) L Hemoglobin 13.1 G/DL (14.2-18.0) L 11.5 G/DL (14.2-18.0) L Hematocrit 41.4 % (42.0-52.0) L 35.5 % (42.0-52.0) L Mean Corpuscular Volume 88 FL (80-99) 89 FL (80-99) Mean Corpuscular Hemoglobin 28.0 PG (27.0-31.0) 28.7 PG (27.0-31.0) Mean Corpuscular Hemoglobin Concent 31.7 G/DL (32.0-36.0) L 32.3 G/DL (32.0-36.0) Red Cell Distribution Width 13.9 % (11.6-14.8) 13.6 % (11.6-14.8) Platelet Count 387 K/UL (150-450) 275 K/UL (150-450) Mean Platelet Volume 6.3 FL (6.5-10.1) L 6.1 FL (6.5-10.1) L Neutrophils (%) (Auto) 74.7 % (45.0-75.0) 74.3 % (45.0-75.0) Lymphocytes (%) (Auto) 12.9 % (20.0-45.0) L 14.7 % (20.0-45.0) L Monocytes (%) (Auto) 7.8 % (1.0-10.0) 6.9 % (1.0-10.0) Eosinophils (%) (Auto) 3.2 % (0.0-3.0) H 3.3 % (0.0-3.0) H Basophils (%) (Auto) 1.4 % (0.0-2.0) 0.8 % (0.0-2.0) Sodium Level 127 MMOL/L (136-145) L 135 MMOL/L (136-145) L Potassium Level 5.5 MMOL/L (3.5-5.1) H 4.5 MMOL/L (3.5-5.1) Chloride Level 96 MMOL/L (98-107) L 102 MMOL/L (98-107) Carbon Dioxide Level 23 MMOL/L (21-32) 29 MMOL/L (21-32) Anion Gap 8 mmol/L (5-15) 5 mmol/L (5-15) Blood Urea Nitrogen 32 mg/dL (7-18) H 18 mg/dL (7-18) Creatinine 1.4 MG/DL (0.55-1.30) H 1.3 MG/DL (0.55-1.30) Estimat Glomerular Filtration Rate 55.6 mL/min (>60) > 60 mL/min (>60) Glucose Level 88 MG/DL (74-106) 98 MG/DL (74-106) Lactic Acid Level 0.80 mmol/L (0.66-2.22) Calcium Level 8.2 MG/DL (8.5-10.1) L 7.7 MG/DL (8.5-10.1) L Total Bilirubin 0.2 MG/DL (0.2-1.0) 0.2 MG/DL (0.2-1.0) Aspartate Amino Transf (AST/SGOT) 26 U/L (15-37) 18 U/L (15-37) Alanine Aminotransferase (ALT/SGPT) 15 U/L (12-78) 15 U/L (12-78) Alkaline Phosphatase 70 U/L (46-116) 57 U/L (46-116) Total Protein 7.3 G/DL (6.4-8.2) 6.0 G/DL (6.4-8.2) L Albumin 2.2 G/DL (3.4-5.0) L 1.8 G/DL (3.4-5.0) L Globulin 5.1 g/dL Albumin/Globulin Ratio 0.4 (1.0-2.7) L Urine Color Pale yellow Urine Appearance Clear Urine pH 6 (4.5-8.0) Urine Specific [place] 1.020 (1.005-1.035) Urine Protein Negative (NEGATIVE) Urine Glucose (UA) Negative (NEGATIVE) Urine Ketones Negative (NEGATIVE) Urine Occult Blood Negative (NEGATIVE) Urine Nitrite Negative (NEGATIVE) Urine Bilirubin Negative (NEGATIVE) Urine Urobilinogen Normal MG/DL (0.0-1.0) Urine Leukocyte Esterase Negative (NEGATIVE) Urine Random Sodium 30 mmol/L (20-110) Urine Creatinine 116.7 MG/DL (30.0-125.0) Magnesium Level 1.8 MG/DL (1.8-2.4) Direct Bilirubin < 0.1 MG/DL (0.0-0.3) Height (Feet): 5 Height (Inches): 9.00 Weight (Pounds): 150 Medications Current Medications Medications (Trade) Dose Ordered Sig/Roverto Route PRN Reason Start Time Stop Time Status Last Admin Dose Admin Acetaminophen (Tylenol) 650 mg Q6H PRN ORAL Mild Pain/Temp > 100.5 11/23/17 11:45 12/23/17 11:44 Albuterol/ Ipratropium (Albuterol/ Ipratropium) 3 ml Q4H PRN HHN Shortness of Breath 11/23/17 11:45 11/28/17 11:44 Azithromycin 500 mg/Dextrose 250 ml @ 250 mls/hr Q24H IV 11/23/17 12:30 11/30/17 12:29 Darunavir (Prezista) 800 mg DAILY ORAL 11/24/17 09:00 12/24/17 08:59 UNV Diphenhydramine HCl (Benadryl) 25 mg Q6H PRN ORAL Itching 11/23/17 11:45 12/23/17 11:44 Fluconazole (Diflucan) 100 mg DAILY ORAL 11/24/17 09:00 12/01/17 08:59 UNV Heparin Sodium (Porcine) (Heparin 5000 units/ml) 5,000 units EVERY 12 HOURS SUBQ 11/23/17 21:00 12/23/17 20:59 Morphine Sulfate (Morphine Sulfate) 2 mg Q4H PRN IVP Moderate Pain (Pain Scale 4-6) 11/23/17 11:45 11/30/17 11:44 Morphine Sulfate (Morphine Sulfate) 4 mg Q4H PRN IVP Severe Pain (Pain Scale 7-10) 11/23/17 13:00 11/30/17 12:59 Ondansetron HCl (Zofran) 4 mg Q6H PRN IVP Nausea & Vomiting 11/23/17 11:45 12/23/17 11:44 Piperacillin Sod/ Tazobactam Sod 4.5 gm/Sodium Chloride 110 ml @ 27.5 mls/hr Q8H IVPB 11/22/17 23:00 11/29/17 22:59 11/23/17 06:08 Ritonavir (Norvir) 100 mg Q24HRS ORAL 11/23/17 11:30 12/23/17 11:29 UNV Sodium Chloride 1,000 ml @ 125 mls/hr Q8H IV 11/22/17 22:00 11/23/17 21:59 11/23/17 06:07 Tenofovir Disoproxil Fumarate (Viread) 300 mg Q24HRS ORAL 11/23/17 11:30 12/23/17 11:29 UNV Trimethoprim/ Sulfamethoxazole (Bactrim-DS) 1 tab Q24HRS ORAL 11/23/17 11:30 11/30/17 11:29 UNV Vancomycin HCl (Vanco rx to dose) 1 ea DAILY PRN MISC Per rx protocol 11/22/17 21:30 12/22/17 21:29 Vancomycin/Sodium Chloride 250 ml @ 166.667 mls/hr Q12H IVPB 11/23/17 05:00 11/28/17 04:59 11/23/17 04:39 Assessment/Plan Problem List: (1) Sepsis ICD Codes: A41.9 - Sepsis, unspecified organism SNOMED: 82643239 (2) Cellulitis of right lower extremity ICD Codes: L03.115 - Cellulitis of right lower limb SNOMED: 152598514 (3) Kaposi sarcoma ICD Codes: C46.9 - Kaposi's sarcoma, unspecified SNOMED: 978034279 (4) HIV/AIDS (5) ROSA ISELA (acute kidney injury) ICD Codes: N17.9 - Acute kidney failure, unspecified SNOMED: 40159430 (6) Hyperkalemia ICD Codes: E87.5 - Hyperkalemia SNOMED: 34156605 (7) Hyponatremia ICD Codes: E87.1 - Hypo-osmolality and hyponatremia SNOMED: 67312232 Status: stable Assessment/Plan Admit inpt ID, general surgery, heme/onc consulted MRI tib/fib reviewed--shows focal 15 x 7 x 16 mm edema/enhancement in the lateral aspect of the proximal tibial metadiaphysis extending to the cortex, which may be osteomyelitis, neoplasm, or other etiology Empiric vanco, zosyn, azithro per ID F/u wound culture F/u blood cultures F/u serologies sent by ID including crypto Check CD4 count, viral load Cont HAART: norvir, viread and prezista Cont bactrim and diflucan for ppx mIVFs Pain control, bowel regimen Supportive care DVT Prophylaxis: HSQ Code Status: Full Hospital Classification Declaration: Based on this initial evaluation, and depending on the patient's clinical course, I anticipate that this patient will require hospitalization for 2-3 days for sepsis, RLE cellulitis, and close respiratory/hemodynamic monitoring. Disposition: Once the patient is stable to leave the hospital, I anticipate the patient will likely be discharged to the following environment: home vs home w/ hh I spent 70 minutes on this patient's case, and >50% was dedicated to counseling and/or care coordination. Discussed with patient/family, nursing staff, SW/CM, ID, surgery regarding clinical status, treatment course, and disposition planning. Time of note may not reflect time of encounter. Krysten Bond M.D. November 23, 2017 11:40
[2017-11-23] MEDS ORDERED: Morphine Sulfate 4mg/ml Inj IVP PRN (11:45)
[2017-11-23] MEDS ORDERED: Albuterol/Ipratropium 3ml neb HHN PRN (11:45)
[2017-11-23 12:00] VITALS: BP 101/59
[2017-11-23] MEDS ORDERED: Ritonavir 100mg tab ORAL SCH (13:00)
[2017-11-23] MEDS: Bactrim-DS 1 tab ORAL SCH (13:47)
[2017-11-23] MEDS: Fluconazole 100mg tab ORAL SCH (13:48)
[2017-11-23 16:00] VITALS: BP 94/58
[2017-11-23 20:00] VITALS: BP 93/53
[2017-11-23] MEDS: Heparin 5000 units/ml inj SUBQ SCH ×2 (20:23→20:33)
[2017-11-23 21:50] VITALS: BP 101/63
[2017-11-24] VITALS (7 sets, daily range): BP systolic 93–108; BP diastolic 54–96
[2017-11-24] MEDS: Piperacillin/Tazobactam 4.5 GM in NS 110 ML IVPB SCH ×2 (06:20→15:36)
[2017-11-24 07:13] LABS: BASOPHILS % (AUTO) 1.2 % (0.0-2.0); EOSINOPHILS % (AUTO) 5.8 % (0.0-3.0); HEMATOCRIT 35.5 % (42.0-52.0); HEMOGLOBIN 11.5 G/DL (14.2-18.0); LYMPHOCYTES % (AUTO) 18.9 % (20.0-45.0); MEAN CORPUSCULAR VOLUME 88 FL (80-99); MONOCYTES % (AUTO) 7.8 % (1.0-10.0); NEUTROPHILS % (AUTO) 66.4 % (45.0-75.0); PLATELET COUNT 248 K/UL (150-450); RED BLOOD COUNT 4.04 M/UL (4.70-6.10); RED CELL DISTRIBUTION WIDTH 13.2 % (11.6-14.8); WHITE BLOOD COUNT 9.4 K/UL (4.8-10.8)
[2017-11-24 07:14] LABS: ANION GAP 4 mmol/L (5-15); BLOOD UREA NITROGEN 10 mg/dL (7-18); CALCIUM 7.7 MG/DL (8.5-10.1); CARBON DIOXIDE 27 MMOL/L (21-32); CHLORIDE 104 MMOL/L (98-107); POTASSIUM 4.1 MMOL/L (3.5-5.1); SODIUM 135 MMOL/L (136-145)
[2017-11-24] MEDS: Fluconazole 100mg tab ORAL SCH (09:02)
[2017-11-24] MEDS: Ritonavir 100mg tab ORAL SCH (09:04)
[2017-11-24] MEDS: Heparin 5000 units/ml inj SUBQ SCH ×2 (09:15→21:18)
[2017-11-24] MEDS: Morphine Sulfate 4mg/ml Inj IVP PRN (09:28)
--- NOTE | 2017-11-24 09:58 | Diagnostic Imaging Report ---
INDICATION: Infection COMPARISON: Chest x-ray dated 11/23/17 FINDINGS: Single frontal view demonstrates small to moderate right pleural effusion with right mid to lower lung zone opacity. Heart size is normal.. The visualized osseous structures are within normal limits. IMPRESSION: Stable small to moderate right pleural effusion with right mid to lower lung zone opacity.
[2017-11-24] MEDS: Vancomycin 1gm in Dextrose 275ml IVPB SCH ×2 (10:44→18:54)
[2017-11-24] MEDS: Bactrim-DS 1 tab ORAL SCH (12:26)
[2017-11-24] MEDS: HYDROmorphone 2mg tab ORAL PRN ×2 (13:09→21:15)
--- NOTE | 2017-11-24 13:43 | General Surgery Progress Note ---
General Surgery-Progress Note Subjective Symptoms: improved Additional Comments edema and cellulitis improved. comfortable. no complaints. Objective Last 24 Hour Vital Signs Date Time Temp Pulse Resp B/P (MAP) Pulse Ox O2 Delivery O2 Flow Rate FiO2 11/24/17 13:09 97.7 11/24/17 12:00 97.7 93 18 100/58 94 97.7 11/24/17 09:58 98.1 11/24/17 09:28 98.1 11/24/17 08:00 98.1 96 19 102/62 96 98.1 11/24/17 07:39 Nasal Cannula 2.0 28 11/24/17 07:39 104 22 Nasal Cannula 2.0 28 11/24/17 04:00 97.9 89 20 95/60 95 Room Air 97.9 11/24/17 04:00 Nasal Cannula 2.0 11/24/17 00:00 Nasal Cannula 2.0 11/24/17 00:00 97.7 87 18 96/56 92 97.7 11/23/17 22:20 98.4 11/23/17 21:50 101 101/63 11/23/17 21:50 98.4 11/23/17 20:14 Nasal Cannula 2.0 28 11/23/17 20:13 95 18 Nasal Cannula 2.0 28 11/23/17 20:00 98.4 104 17 93/53 93 98.4 11/23/17 20:00 Nasal Cannula 2.0 11/23/17 16:00 98.6 90 20 94/58 95 98.6 I&O Intake and Output 11/23/17 11/24/17 19:00 07:00 Intake Total 1162.5 ml 110.03 ml Output Total 1300 ml 950 ml Balance -137.5 ml -839.97 ml Intake Oral 480 ml IV Total 682.5 ml 110.03 ml Output Urine Total 1300 ml 950 ml Wound: other - edema and cellulitis improving. large [place] area still Drains: none Cardiovascular: RSR Respiratory: clear Abdomen: soft, non-tender, present bowel sounds Laboratory Tests Test 11/23/17 20:11 11/24/17 04:00 11/24/17 05:37 Urine Legionella Antigen Pending Cryptococcus Antigen Pending White Blood Count 9.4 K/UL (4.8-10.8) Red Blood Count 4.04 M/UL (4.70-6.10) L Hemoglobin 11.5 G/DL (14.2-18.0) L Hematocrit 35.5 % (42.0-52.0) L Mean Corpuscular Volume 88 FL (80-99) Mean Corpuscular Hemoglobin 28.4 PG (27.0-31.0) Mean Corpuscular Hemoglobin Concent 32.3 G/DL (32.0-36.0) Red Cell Distribution Width 13.2 % (11.6-14.8) Platelet Count 248 K/UL (150-450) Mean Platelet Volume 6.2 FL (6.5-10.1) L Neutrophils (%) (Auto) 66.4 % (45.0-75.0) Lymphocytes (%) (Auto) 18.9 % (20.0-45.0) L Monocytes (%) (Auto) 7.8 % (1.0-10.0) Eosinophils (%) (Auto) 5.8 % (0.0-3.0) H Basophils (%) (Auto) 1.2 % (0.0-2.0) Sodium Level 135 MMOL/L (136-145) L Potassium Level 4.1 MMOL/L (3.5-5.1) Chloride Level 104 MMOL/L (98-107) Carbon Dioxide Level 27 MMOL/L (21-32) Anion Gap 4 mmol/L (5-15) L Blood Urea Nitrogen 10 mg/dL (7-18) Creatinine 1.0 MG/DL (0.55-1.30) Estimat Glomerular Filtration Rate > 60 mL/min (>60) Glucose Level 100 MG/DL (74-106) Calcium Level 7.7 MG/DL (8.5-10.1) L Magnesium Level 1.8 MG/DL (1.8-2.4) Vancomycin Level Trough 6.0 ug/mL (5.0-12.0) Plan Problems: (1) Kaposis sarcoma Assessment & Plan: 41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 possible superimposed infection as well. mild cellulitis in leg and some edema. afebrile, HD stable, leukocytosis improving. -explained to patient how important it is for him to follow up with oncologist as an outpatient for treatment of this as he has been instructed two months ago -explained that abx would help with infection if superimposed but underlying etiology is the tumor -no acute surgical intervention needed -no biopsy needed given had one two months ago and diagnosis made at [facility] to d/c from surgical standpoint. follow up with oncologist as an outpatient. Curtis Dover November 24, 2017 13:43
[2017-11-24] MEDS ORDERED: Tubing IV Secondary IV ONE (14:28)
--- NOTE | 2017-11-24 15:53 | Infectious Diseases Prog Note ---
Assessment/Plan Assessment/Plan Full consult dictated: A) 1) staph aureus right leg cellulitis/? infected wound, KS, ? osteomyelitis, leukocytosis, ? cap 2) hiv, aids, pmh noted 3) allergies - nkda 4) vre colonization P) 1) vancomycin, rocephin and azithromycin 2) consider bone scan, check sr, crp, labs, bc, sc, serology, chest x-ray 3) hem/onc evaluation 4) anti-retroviral therapy - norvir, viread and prezista 5) will f/u Subjective Allergies: Coded Allergies: NO KNOWN DRUG ALLERGIES (Unverified Allergy, Unknown, 08/11/14) Uncoded Allergies: MILDEW (Allergy, Unknown, 09/13/17) Objective Vital Signs Last 24 Hour Vital Signs Date Time Temp Pulse Resp B/P (MAP) Pulse Ox O2 Delivery O2 Flow Rate FiO2 11/24/17 14:08 97.7 11/24/17 13:09 97.7 11/24/17 12:00 97.7 93 18 100/58 94 97.7 11/24/17 09:58 98.1 11/24/17 09:28 98.1 11/24/17 08:00 98.1 96 19 102/62 96 98.1 11/24/17 07:39 Nasal Cannula 2.0 28 11/24/17 07:39 104 22 Nasal Cannula 2.0 28 11/24/17 04:00 97.9 89 20 95/60 95 Room Air 97.9 11/24/17 04:00 Nasal Cannula 2.0 11/24/17 00:00 Nasal Cannula 2.0 11/24/17 00:00 97.7 87 18 96/56 92 97.7 11/23/17 22:20 98.4 11/23/17 21:50 101 101/63 11/23/17 21:50 98.4 11/23/17 20:14 Nasal Cannula 2.0 28 11/23/17 20:13 95 18 Nasal Cannula 2.0 28 11/23/17 20:00 98.4 104 17 93/53 93 98.4 11/23/17 20:00 Nasal Cannula 2.0 11/23/17 16:00 98.6 90 20 94/58 95 98.6 Height (Feet): 5 Height (Inches): 9.00 Weight (Pounds): 150 General Appearance: no acute distress HEENT: normocephalic, atraumatic, anicteric Respiratory/Chest: lungs clear, normal breath sounds, no respiratory distress Cardiovascular: normal rate, regular rhythm, no gallop/murmur, no JVD Abdomen: normal bowel sounds, soft, non tender, no organomegaly Extremities: other - right leg cellulitis Microbiology Date/Time Source Procedure Growth Status 11/22/17 17:38 Blood Blood Culture - Preliminary NO GROWTH AFTER 24 HOURS Resulted 11/22/17 17:15 Blood Blood Culture - Preliminary NO GROWTH AFTER 24 HOURS Resulted 11/22/17 22:50 Rectal Mucosa VRE Culture - Final Enterococcus Faecium - Vre Complete 11/22/17 22:50 Leg Right Gram Stain - Final Resulted 11/22/17 22:50 Wound Culture - Preliminary Staphylococcus Aureus Resulted Laboratory Tests Test 11/23/17 20:11 11/24/17 04:00 11/24/17 05:37 Urine Legionella Antigen Pending Cryptococcus Antigen Pending White Blood Count 9.4 K/UL (4.8-10.8) Red Blood Count 4.04 M/UL (4.70-6.10) L Hemoglobin 11.5 G/DL (14.2-18.0) L Hematocrit 35.5 % (42.0-52.0) L Mean Corpuscular Volume 88 FL (80-99) Mean Corpuscular Hemoglobin 28.4 PG (27.0-31.0) Mean Corpuscular Hemoglobin Concent 32.3 G/DL (32.0-36.0) Red Cell Distribution Width 13.2 % (11.6-14.8) Platelet Count 248 K/UL (150-450) Mean Platelet Volume 6.2 FL (6.5-10.1) L Neutrophils (%) (Auto) 66.4 % (45.0-75.0) Lymphocytes (%) (Auto) 18.9 % (20.0-45.0) L Monocytes (%) (Auto) 7.8 % (1.0-10.0) Eosinophils (%) (Auto) 5.8 % (0.0-3.0) H Basophils (%) (Auto) 1.2 % (0.0-2.0) Sodium Level 135 MMOL/L (136-145) L Potassium Level 4.1 MMOL/L (3.5-5.1) Chloride Level 104 MMOL/L (98-107) Carbon Dioxide Level 27 MMOL/L (21-32) Anion Gap 4 mmol/L (5-15) L Blood Urea Nitrogen 10 mg/dL (7-18) Creatinine 1.0 MG/DL (0.55-1.30) Estimat Glomerular Filtration Rate > 60 mL/min (>60) Glucose Level 100 MG/DL (74-106) Calcium Level 7.7 MG/DL (8.5-10.1) L Magnesium Level 1.8 MG/DL (1.8-2.4) Vancomycin Level Trough 6.0 ug/mL (5.0-12.0) Current Medications Medications (Trade) Dose Ordered Sig/Roverto Route PRN Reason Start Time Stop Time Status Last Admin Dose Admin Acetaminophen (Tylenol) 650 mg Q6H PRN ORAL Mild Pain/Temp > 100.5 11/23/17 11:45 12/23/17 11:44 Albuterol/ Ipratropium (Albuterol/ Ipratropium) 3 ml Q4H PRN HHN Shortness of Breath 11/23/17 11:45 11/28/17 11:44 Azithromycin 500 mg/Dextrose 250 ml @ 250 mls/hr Q24H IV 11/23/17 12:30 11/30/17 12:29 11/24/17 12:28 Darunavir (Prezista) 800 mg Q24HRS ORAL 11/24/17 09:00 12/24/17 08:59 11/24/17 09:02 Diphenhydramine HCl (Benadryl) 25 mg Q6H PRN ORAL Itching 11/23/17 11:45 12/23/17 11:44 Fluconazole (Diflucan) 100 mg DAILY ORAL 11/23/17 13:00 11/30/17 12:59 11/24/17 09:02 Heparin Sodium (Porcine) (Heparin 5000 units/ml) 5,000 units EVERY 12 HOURS SUBQ 11/23/17 21:00 12/23/17 20:59 11/24/17 09:15 Hydromorphone HCl (Dilaudid) 2 mg Q4H PRN ORAL moderate/severe pain 11/23/17 23:00 11/30/17 22:59 11/24/17 13:09 Morphine Sulfate (Morphine Sulfate) 2 mg Q4H PRN IVP Moderate Pain (Pain Scale 4-6) 11/23/17 11:45 11/30/17 11:44 11/23/17 21:50 Morphine Sulfate (Morphine Sulfate) 4 mg Q4H PRN IVP Severe Pain (Pain Scale 7-10) 11/23/17 13:00 11/30/17 12:59 11/24/17 09:28 Ondansetron HCl (Zofran) 4 mg Q6H PRN IVP Nausea & Vomiting 11/23/17 11:45 12/23/17 11:44 Piperacillin Sod/ Tazobactam Sod 4.5 gm/Sodium Chloride 110 ml @ 27.5 mls/hr Q8H IVPB 11/22/17 23:00 11/29/17 22:59 11/24/17 15:36 Ritonavir (Norvir) 100 mg Q24HRS ORAL 11/24/17 09:00 12/24/17 08:59 11/24/17 09:04 Tenofovir Disoproxil Fumarate (Viread) 300 mg Q24HRS ORAL 11/24/17 09:00 12/24/17 08:59 11/24/17 09:02 Trimethoprim/ Sulfamethoxazole (Bactrim-DS) 1 tab Q24HRS ORAL 11/23/17 12:00 11/30/17 11:59 11/24/17 12:26 Vancomycin HCl (Vanco rx to dose) 1 ea DAILY PRN MISC Per rx protocol 11/22/17 21:30 12/22/17 21:29 Vancomycin HCl 1 gm/Dextrose 275 ml @ 183.708 mls/hr Q8H IVPB 11/24/17 10:00 11/29/17 09:59 11/24/17 10:44 LIVIER AMAYA November 24, 2017 15:53
[2017-11-24] MEDS: cefTRIAXone 1 GM in D5W 50 ML IVPB SCH (17:21)
--- NOTE | 2017-11-24 23:06 | General Progress Note ---
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 - Kaposi's sarcoma, unspecified SNOMED: 455710913 (4) HIV/AIDS (5) ROSA ISELA (acute kidney injury) ICD Codes: N17.9 - Acute kidney failure, unspecified SNOMED: 55439331 (6) Hyperkalemia ICD Codes: E87.5 - Hyperkalemia SNOMED: 80634539 (7) Hyponatremia ICD Codes: E87.1 - Hypo-osmolality and hyponatremia SNOMED: 89341492 Status: stable Assessment/Plan ID, general surgery, heme/onc consulted MRI tib/fib reviewed--shows focal 15 x 7 x 16 mm edema/enhancement in the lateral aspect of the proximal tibial metadiaphysis extending to the cortex, which may be osteomyelitis, neoplasm, or other etiology Empiric vanco, ceftriaxone azithro per ID F/u wound culture--shows 3+ Staph aureus F/u blood cultures F/u serologies sent by ID including crypto F/u CD4 count, viral load Cont HAART: norvir, viread and prezista Cont bactrim and diflucan for ppx Pain control, bowel regimen Supportive care Will need outpt follow-up with heme/onc for KS treatment DVT Prophylaxis: HSQ Code Status: Full Hospital Classification Declaration: Based on this initial evaluation, and depending on the patient's clinical course, I anticipate that this patient will require hospitalization for 1-2 days for sepsis, RLE cellulitis, and close respiratory/hemodynamic monitoring. Disposition: Once the patient is stable to leave the hospital, I anticipate the patient will likely be discharged to the following environment: home vs home w/ hh I spent 41 minutes on this patient's case, and >50% was dedicated to counseling and/or care coordination. Discussed with patient/family, nursing staff, SW/CM, ID, surgery regarding clinical status, treatment course, and disposition planning. Time of note may not reflect time of encounter. Subjective Date patient seen: November 24, 2017 Time patient seen: 13:00 ROS Limited/Unobtainable: No Constitutional: Reports: malaise, weakness HEENT: Reports: no symptoms Cardiovascular: Reports: no symptoms Respiratory: Reports: no symptoms Gastrointestinal/Abdominal: Reports: no symptoms Genitourinary: Reports: no symptoms Neurologic/Psychiatric: Reports: no symptoms Endocrine: Reports: no symptoms Hematologic/Lymphatic: Reports: no symptoms Allergies: Coded Allergies: NO KNOWN DRUG ALLERGIES (Unverified Allergy, Unknown, 08/11/14) Uncoded Allergies: MILDEW (Allergy, Unknown, 09/13/17) Subjective No acute o/n events WBC downtrending Na improving, Cr downtrending Wound culture shows Staph aureus Pt notes some improvement in RLE redness/swelling/pain Objective Last 24 Hour Vital Signs Date Time Temp Pulse Resp B/P (MAP) Pulse Ox O2 Delivery O2 Flow Rate FiO2 11/24/17 21:54 Room Air 11/24/17 21:15 97.9 11/24/17 21:11 96 107/65 11/24/17 21:00 97 22 Nasal Cannula 2.0 11/24/17 21:00 Nasal Cannula 2.0 28 11/24/17 20:00 97.9 96 20 93/54 100 Room Air 97.9 11/24/17 15:55 97.7 101 18 108/96 96 97.7 11/24/17 14:08 97.7 11/24/17 13:09 97.7 11/24/17 12:00 97.7 93 18 100/58 94 97.7 11/24/17 09:58 98.1 11/24/17 09:28 98.1 11/24/17 08:00 98.1 96 19 102/62 96 98.1 11/24/17 07:39 Nasal Cannula 2.0 28 11/24/17 07:39 104 22 Nasal Cannula 2.0 28 11/24/17 04:00 97.9 89 20 95/60 95 Room Air 97.9 11/24/17 04:00 Nasal Cannula 2.0 11/24/17 00:00 Nasal Cannula 2.0 11/24/17 00:00 97.7 87 18 96/56 92 97.7 Intake and Output 11/23/17 11/24/17 19:00 07:00 Intake Total 1162.5 ml 110.03 ml Output Total 1300 ml 950 ml Balance -137.5 ml -839.97 ml Intake Oral 480 ml IV Total 682.5 ml 110.03 ml Output Urine Total 1300 ml 950 ml Laboratory Tests 11/24/17 04:00: Cryptococcus Antigen [Pending] 11/24/17 05:37: White Blood Count 9.4, Red Blood Count 4.04L, Hemoglobin 11.5L, Hematocrit 35.5L , Mean Corpuscular Volume 88, Mean Corpuscular Hemoglobin 28.4, Mean Corpuscular Hemoglobin Concent 32.3, Red Cell Distribution Width 13.2, Platelet Count 248, Mean Platelet Volume 6.2L, Neutrophils (%) (Auto) 66.4, Lymphocytes ( %) (Auto) 18.9L, Monocytes (%) (Auto) 7.8, Eosinophils (%) (Auto) 5.8H, Basophils (%) (Auto) 1.2, Sodium Level 135L, Potassium Level 4.1, Chloride Level 104, Carbon Dioxide Level 27, Anion Gap 4L, Blood Urea Nitrogen 10, Creatinine 1.0, Estimat Glomerular Filtration Rate > 60, Glucose Level 100, Calcium Level 7.7L, Magnesium Level 1.8, Vancomycin Level Trough 6.0 Height (Feet): 5 Height (Inches): 9.00 Weight (Pounds): 150 Objective General: alert, cooperative, no distress, appears stated age Head: normocephalic, without obvious abnormality, atraumatic Eyes: conjunctivae/corneas clear. PERRL, EOM's intact Throat: lips, mucosa, and tongue normal. MMM Neck: supple, symmetrical, trachea midline, and no JVD Lungs: clear to auscultation bilaterally Heart: regular rate and rhythm, S1, S2 normal, no murmur, click, rub or gallop Abdomen: soft, non-tender, non-distended, bowel sounds normal; no masses or organomegaly Extremities: RLE with erythema/edema/TTP w/ raised skin lesions (see photos) Pulses: 2+ and symmetric Neurologic: grossly normal, no focal deficits Krysten Bond M.D. November 24, 2017 23:06
[2017-11-25] VITALS: BP 98/50
--- NOTE | 2017-11-25 00:15 | Consultation ---
DATE OF CONSULTATION: 11/24/2017 INFECTIOUS DISEASE CONSULTATION CONSULTING PHYSICIAN: Pollo Carcamo M.D. ATTENDING PHYSICIAN: Andrew Vizcarra M.D. REFERRING PHYSICIAN: Krysten Bond M.D. REASON FOR CONSULTATION: Right leg cellulitis, possible osteo, elevated white count, possible sepsis, possible osteo of the right leg, and infected wound. CHIEF COMPLAINT: The patient's chief complaint coming in to the hospital is cellulitis of the right lower extremity. HISTORY OF PRESENT ILLNESS: This is a 41-year-old male with a history of HIV. T-cell count is unclear at this time. The patient has also what looks like KS to the right lower extremity. The patient presents with right lower extremity pain, redness, and warmth consistent with cellulitis. MRI was done of the right tibia-fibula, which showed edema enhancement, which may be osteomyelitis, neoplasm, or other etiology. Infectious Disease consultation has been requested. The patient also on chest x-ray shows what looks like he could have pneumonia. The patient was initially on Zosyn, vancomycin, and azithromycin. When I saw the patient, I placed the patient on Rocephin, azithromycin, and vancomycin. Wound culture of the right leg is growing out Staph aureus. The patient is also being followed by Surgery. Bone scan has also been noted and reviewed the x-rays. PAST MEDICAL HISTORY: The patient's past medical history includes the history of the following. He has a history of HIV. He has a history of anti-retroviral therapy. He has history of what looks like Kaposi's sarcoma of the right leg. He had a history of neurosyphilis in the past and does have a history of syphilis. MEDICATIONS: Upon reviewing the MAR, the patient is on following medications. The patient is on Prezista, Norvir, Viread, vancomycin, and Zosyn. He was on Diflucan I think prophylactically, heparin, hydromorphone, morphine, azithromycin, Bactrim prophylactically, diphenhydramine, Zofran, morphine, and albuterol. I have placed the patient on vancomycin, Rocephin, and azithromycin at this time. The patient was on vancomycin and Zosyn and azithromycin. Outside medication noted and reconciliated. ALLERGIES: No known drug allergies. SOCIAL HISTORY: Negative for smoking, alcohol, or drug abuse. FAMILY HISTORY: Noncontributory. REVIEW OF SYSTEMS: CONSTITUTIONAL: Generalized fatigue and weakness. No fever or chills. No focal weakness. HEAD AND NECK: No head pain or neck pain. CARDIAC: No chest pain. GASTROINTESTINAL: No nausea, vomiting, or diarrhea. GENITOURINARY: No dysuria. No Vitale. PULMONARY: No congestion or shortness of breath. SKIN: No rash or itching. EXTREMITIES: Right leg pain. NEUROLOGIC: No seizures. PHYSICAL EXAMINATION: VITAL SIGNS: Temperature 97.7, pulse rate 101, respiratory rate 18, blood pressure /96, and saturation 96%. GENERAL: He is alert and oriented x3. HEAD AND NECK: Oral exam, no thrush. Eye exam, no icterus. NECK: Supple. No JVD. Normocephalic. No facial droop. LUNGS: Clear bilaterally. No rhonchi or rales HEART: Regular. No obvious gallop or murmur. ABDOMEN: Soft. Positive bowel sounds. Nontender. SKIN: No rash. MUSCULOSKELETAL: No effusions. Right leg consistent with the KS lesions with surrounding warmth and redness. No obvious wounds, but I believe there might be drainage earlier in the hospitalization. PERIPHERAL VASCULAR: No gangrene. NEUROLOGIC: Intact. LINE SITES: Without phlebitis. GENITOURINARY: No Vitale. LABORATORY DATA: Laboratory data is as follows. VRE screen is positive. Wound culture of the right leg shows Staph aureus. Blood cultures are negative. White count 9.4 and hemoglobin 11.5. The patient's creatinine is 1.0. White count on admission was 15.3. UA was negative. Creatinine 1.0. Chest x-ray shows right effusion with right to mid lower lung opacity. Sputum cultures have been ordered. Serology for mycoplasma has been ordered. RPR has been ordered. CD4 viral load has been ordered. MRI of the tibia fibula showed edema and enhancement and possible osteomyelitis and neoplasm. ASSESSMENT AND PLAN: 1. The patient has Staph aureus, right leg, questionable infected wound, but certainly has cellulitis of the right leg. Rule out underlying osteo versus Kaposi's sarcoma. The patient clinically looks like he also has Kaposi's sarcoma of the right lower extremity. At this time, we will continue vancomycin to cover the Staph aureus. There is also a question if the patient has pneumonia with effusion. We will check sputum culture and Legionella mycoplasma. Continue Rocephin, azithromycin, and vancomycin for that. The patient also had possible sepsis and elevated white count, the white count has improved. Continue vancomycin, Rocephin, and azithromycin for now. Check bone scan of the right leg. Check serology. Check sputum culture. Followup laboratories and chest x-ray. Consider Hematology/Oncology evaluation for treatment for Kaposi's sarcoma. 2. Human immunodeficiency virus. It seems like he could have a history of acquired immune deficiency syndrome. Check CD4 viral load. Continue anti-retroviral therapy with Norvir, Viread, and Prezista. 3. History of syphilis, neurosyphilis. Check RPR. 4. Likely Kaposi's sarcoma. 5. No other past medical history. 6. No known drug allergies. 7. Social history is negative. 8. Family history is noncontributory. 9. MAR was noted. 10. Case was discussed with RN. 11. Case was communicated with Dr. Bashir and Surgery. Pollo Carcamo M.D. DR: ELZA JOB#: [id number] CC:
[2017-11-25] MEDS ORDERED: Vancomycin 1gm inj IVPB ONE (01:52)
[2017-11-25] MEDS: Vancomycin 1gm in Dextrose 275ml IVPB SCH ×3 (01:58→15:21)
[2017-11-25] MEDS: HYDROmorphone 2mg tab ORAL PRN ×3 (03:52→20:22)
[2017-11-25 04:00] VITALS: BP 111/71
--- NOTE | 2017-11-25 07:00 | General Progress Note ---
Assessment/Plan Assessment/Plan # Kaposi sarcoma - MRI tib/fib reviewed--shows focal 15 x 7 x 16 mm edema/ enhancement in the lateral aspect of the proximal tibial metadiaphysis extending to the cortex, which may be osteomyelitis, neoplasm, or other etiology , he has had a biopsy performed before and was consistent with KS at outside hospital --> primary recommendation is to restart HAART therapy per ID team, this is the primary treatment for KS (he has had hiv for 14 years but on meds for only 1) --> as outpatient if condition does not improve, may need several doses of doxil (doxorubicin) iv chemo # Anemia of chronic disease -- anemia workup has been reviewed --> hgb goal is >7 # HIV/AIDs - has been poorly controlled before --> CD4 count is pending # Hypocalcemia - corrects with patient's albumin to be wnl Subjective Date patient seen: November 24, 2017 Constitutional: Denies: no symptoms, chills, diaphoresis, fever, malaise, weakness, other HEENT: Denies: no symptoms, eye pain, blurred vision, tearing, double vision, ear pain, ear discharge, nose pain, nose congestion, throat pain, throat swelling, mouth pain, mouth swelling, other Cardiovascular: Denies: no symptoms, chest pain, edema, irregular heart rate, lightheadedness, palpitations, syncope, other Respiratory: Denies: no symptoms, cough, orthopnea, shortness of breath, SOB with excertion, SOB at rest, sputum, stridor, wheezing, other Gastrointestinal/Abdominal: Denies: no symptoms, abdomen distended, abdominal pain, black stools, tarry stools, blood in stool, constipated, diarrhea, difficulty swallowing, nausea, poor appetite, poor fluid intake, rectal bleeding , vomiting, other Genitourinary: Denies: no symptoms, burning, discharge, frequency, flank pain, hematuria, incontinence, pain, urgency, other Neurologic/Psychiatric: Denies: no symptoms, anxiety, depressed, emotional problems, headache, numbness, paresthesia, pre-existing deficit, seizure, tingling, tremors, weakness, other Endocrine: Denies: no symptoms, excessive sweating, flushing, intolerance to cold, intolerance to heat, increased hunger, increased thirst, increased urine, unexplained weight gain, unexplained weight loss, other Hematologic/Lymphatic: Denies: no symptoms, anemia, easy bleeding, easy bruising, other Allergies: Coded Allergies: NO KNOWN DRUG ALLERGIES (Unverified Allergy, Unknown, 08/11/14) Uncoded Allergies: MILDEW (Allergy, Unknown, 09/13/17) All Systems: reviewed and negative except above Subjective right leg remains inflammed, on abx Objective Last 24 Hour Vital Signs Date Time Temp Pulse Resp B/P (MAP) Pulse Ox O2 Delivery O2 Flow Rate FiO2 11/25/17 04:51 98.0 11/25/17 04:26 Room Air 11/25/17 04:00 98.0 87 18 111/71 92 Room Air 98.0 11/25/17 03:52 97.7 11/25/17 00:00 97.7 94 19 98/50 94 Room Air 97.7 11/24/17 21:54 Room Air 11/24/17 21:15 97.9 11/24/17 21:11 96 107/65 11/24/17 21:00 97 22 Nasal Cannula 2.0 28 11/24/17 21:00 Nasal Cannula 2.0 28 11/24/17 20:00 97.9 96 20 93/54 100 Room Air 97.9 11/24/17 15:55 97.7 101 18 108/96 96 97.7 11/24/17 13:09 97.7 11/24/17 12:00 97.7 93 18 100/58 94 97.7 11/24/17 09:58 98.1 11/24/17 09:28 98.1 11/24/17 08:00 98.1 96 19 102/62 96 98.1 11/24/17 07:39 Nasal Cannula 2.0 28 11/24/17 07:39 104 22 Nasal Cannula 2.0 28 Intake and Output 11/24/17 11/25/17 19:00 07:00 Intake Total 1195 ml 550.000 ml Output Total 900 ml Balance 295 ml 550.000 ml Intake Oral 620 ml IV Total 575 ml 550.000 ml Output Urine Total 900 ml # Voids 4 # Bowel Movements 1 Height (Feet): 5 Height (Inches): 9.00 Weight (Pounds): 150 General Appearance: alert EENT: TMs normal Neck: normal alignment Cardiovascular: regular rhythm Respiratory/Chest: no respiratory distress Abdomen: no organomegaly Extremities: normal range of motion Edema: 1+ Arm (L), 1+ Arm (R), 1+ Leg (L), 1+ Leg (R) Edema: mild edema Neurologic: alert Skin: warm/dry Micah Powell MD November 25, 2017 07:00
--- NOTE | 2017-11-25 07:27 | General Progress Note ---
Assessment/Plan Assessment/Plan # Kaposi sarcoma - MRI tib/fib reviewed--shows focal 15 x 7 x 16 mm edema/ enhancement in the lateral aspect of the proximal tibial metadiaphysis extending to the cortex, which may be osteomyelitis, neoplasm, or other etiology , he has had a biopsy performed before and was consistent with KS at outside hospital --> primary recommendation is to restart HAART therapy per ID team, this is the primary treatment for KS (he has had hiv for 14 years but on meds for only 1) --> as outpatient if condition does not improve, may need several doses of doxil (doxorubicin) IV chemo --> may improve in as less as 3 chemo treatments after has been taking HIV meds for 3-6 months --> has office address and says will come in, but has significant non- compliance history # Anemia of chronic disease -- anemia workup has been reviewed --> hgb goal is >7 # HIV/AIDs - has been poorly controlled before --> CD4 count is pending # Hypocalcemia - corrects with patient's albumin to be wnl Subjective Constitutional: Denies: no symptoms, chills, diaphoresis, fever, malaise, weakness, other HEENT: Denies: no symptoms, eye pain, blurred vision, tearing, double vision, ear pain, ear discharge, nose pain, nose congestion, throat pain, throat swelling, mouth pain, mouth swelling, other Cardiovascular: Denies: no symptoms, chest pain, edema, irregular heart rate, lightheadedness, palpitations, syncope, other Respiratory: Denies: no symptoms, cough, orthopnea, shortness of breath, SOB with excertion, SOB at rest, sputum, stridor, wheezing, other Gastrointestinal/Abdominal: Denies: no symptoms, abdomen distended, abdominal pain, black stools, tarry stools, blood in stool, constipated, diarrhea, difficulty swallowing, nausea, poor appetite, poor fluid intake, rectal bleeding , vomiting, other Genitourinary: Denies: no symptoms, burning, discharge, frequency, flank pain, hematuria, incontinence, pain, urgency, other Neurologic/Psychiatric: Denies: no symptoms, anxiety, depressed, emotional problems, headache, numbness, paresthesia, pre-existing deficit, seizure, tingling, tremors, weakness, other Endocrine: Denies: no symptoms, excessive sweating, flushing, intolerance to cold, intolerance to heat, increased hunger, increased thirst, increased urine, unexplained weight gain, unexplained weight loss, other Hematologic/Lymphatic: Denies: no symptoms, anemia, easy bleeding, easy bruising, other Allergies: Coded Allergies: NO KNOWN DRUG ALLERGIES (Unverified Allergy, Unknown, 08/11/14) Uncoded Allergies: MILDEW (Allergy, Unknown, 09/13/17) Subjective right leg remains inflammed, this am very tired Objective Last 24 Hour Vital Signs Date Time Temp Pulse Resp B/P (MAP) Pulse Ox O2 Delivery O2 Flow Rate FiO2 11/25/17 04:51 98.0 11/25/17 04:26 Room Air 11/25/17 04:00 98.0 87 18 111/71 92 Room Air 98.0 11/25/17 03:52 97.7 11/25/17 00:00 97.7 94 19 98/50 94 Room Air 97.7 11/24/17 21:54 Room Air 11/24/17 21:15 97.9 11/24/17 21:11 96 107/65 11/24/17 21:00 97 22 Nasal Cannula 2.0 28 11/24/17 21:00 Nasal Cannula 2.0 28 11/24/17 20:00 97.9 96 20 93/54 100 Room Air 97.9 11/24/17 15:55 97.7 101 18 108/96 96 97.7 11/24/17 13:09 97.7 11/24/17 12:00 97.7 93 18 100/58 94 97.7 11/24/17 09:58 98.1 11/24/17 09:28 98.1 11/24/17 08:00 98.1 96 19 102/62 96 98.1 11/24/17 07:39 Nasal Cannula 2.0 28 11/24/17 07:39 104 22 Nasal Cannula 2.0 28 Intake and Output 11/24/17 11/25/17 19:00 07:00 Intake Total 1195 ml 550.000 ml Output Total 900 ml Balance 295 ml 550.000 ml Intake Oral 620 ml IV Total 575 ml 550.000 ml Output Urine Total 900 ml # Voids 4 # Bowel Movements 1 Height (Feet): 5 Height (Inches): 9.00 Weight (Pounds): 150 General Appearance: no apparent distress EENT: TMs normal Neck: non-tender Cardiovascular: normal rate Respiratory/Chest: lungs clear Abdomen: no organomegaly Extremities: non-tender Edema: mild edema Neurologic: alert Skin: warm/dry Micah Powell MD November 25, 2017 07:27
[2017-11-25 08:00] VITALS: BP 110/69
[2017-11-25 08:14] LABS: BASOPHILS % (AUTO) 1.1 % (0.0-2.0); EOSINOPHILS % (AUTO) 5.7 % (0.0-3.0); HEMATOCRIT 37.8 % (42.0-52.0); HEMOGLOBIN 11.9 G/DL (14.2-18.0); LYMPHOCYTES % (AUTO) 17.7 % (20.0-45.0); MEAN CORPUSCULAR VOLUME 89 FL (80-99); MONOCYTES % (AUTO) 8.8 % (1.0-10.0); NEUTROPHILS % (AUTO) 66.7 % (45.0-75.0); PLATELET COUNT 269 K/UL (150-450); RED BLOOD COUNT 4.23 M/UL (4.70-6.10); RED CELL DISTRIBUTION WIDTH 13.2 % (11.6-14.8); WHITE BLOOD COUNT 7.5 K/UL (4.8-10.8)
--- NOTE | 2017-11-25 08:15 | Consultation ---
DATE OF CONSULTATION: 11/23/2017 HEMATOLOGY/ONCOLOGY CONSULTATION CONSULTING PHYSICIAN: Micah Powell M.D. REFERRING PHYSICIAN: Krysten Bond M.D. REASON FOR CONSULTATION: Evaluation of anemia. IDENTIFYING DATA: Dear Dr. Bashir, The patient is a pleasant 41-year-old male with past medical history significant for HIV, lower extremity pain, edema for the past 8 month, has had a wound on the right side of the leg, since that time has been worsening. He states he has been getting Bactrim. It does get better occasionally. When he is not on Bactrim, it gets worse. Surgical Service has been consulted. The patient is seen and evaluated, likely this looks like a tumor and very concerning interacted with the patient. He states that he had a biopsy prior, diagnosed with Kaposi sarcoma approximately 2 months ago. He stated likely require chemotherapy since his chemo site has been in denial due to an infection. PAST MEDICAL HISTORY: Kaposi sarcoma, dyspnea, hyponatremia, allergic reaction of left leg, cellulitis. FAMILY HISTORY: Noncontributory. REVIEW OF SYSTEMS: CONSTITUTIONAL: No fever, chills, or night sweats. SKIN: No rashes, bumps, or itching. HEENT: No headache, hearing or vision changes. BREASTS: No lumps, pain, or discharge. PULMONARY: No cough, sputum, or shortness of breath. GASTROINTESTINAL: No nausea, vomiting, or diarrhea. GENITOURINARY: No dysuria, frequency, or urgency. MUSCULOSKELETAL: No joint swelling, muscle pain, or trauma. PHYSICAL EXAMINATION: VITAL SIGNS: Reviewed. GENERAL: No distress. PULMONARY: Decreased breath sounds. CARDIOVASCULAR: Regular rate. No S3 or S4. ABDOMEN: Soft, nontender, and nondistended. EXTREMITIES: Cellulitis noted on the right side of the leg. LABORATORY AND DIAGNOSTIC DATA: WBC 12.7, hemoglobin 11.5, hematocrit 36, and platelet count 275,000. BUN of 18 and creatinine 1.3. Immunology reviewed. CD4 count pending. Serology reviewed. HIV RNA load pending. ASSESSMENT AND RECOMMENDATION: 1. Kaposi sarcoma. The patient with evidence of edema on the lateral aspect of the proximal tibial metadiaphysis on the right side of the leg, enhancements likely consistent with neoplasm, Kaposi sarcoma. The patient likely will need chemotherapy in addition to anti-retroviral to control his HIV. ID recommendations and Hematology/Oncology outpatient followup. 2. Anemia due to underlying human immunodeficiency virus and acquired immunodeficiency syndrome, chronic disease. 3. Leukocytosis, likely secondary to underlying infection. Continue to closely monitor. 4. Acute kidney injury, currently improved. 5. Human immunodeficiency virus/acquired immunodeficiency syndrome, controlled with current medications as per ID Service . 6. I appreciate consultation. Micah Powell M.D. DR: OREN JOB#: [id number] CC:
[2017-11-25 08:22] LABS: ANION GAP 4 mmol/L (5-15); BLOOD UREA NITROGEN 10 mg/dL (7-18); CALCIUM 8.1 MG/DL (8.5-10.1); CARBON DIOXIDE 29 MMOL/L (21-32); CHLORIDE 103 MMOL/L (98-107); CREATININE 0.9 MG/DL (0.55-1.30); POTASSIUM 4.2 MMOL/L (3.5-5.1); SODIUM 136 MMOL/L (136-145)
[2017-11-25] MEDS: Ritonavir 100mg tab ORAL SCH (08:49)
[2017-11-25] MEDS: Heparin 5000 units/ml inj SUBQ SCH (08:52)
[2017-11-25] MEDS: Fluconazole 100mg tab ORAL SCH (09:01)
--- NOTE | 2017-11-25 11:32 | General Surgery Progress Note ---
General Surgery-Progress Note Subjective Symptoms: improved Objective Last 24 Hour Vital Signs Date Time Temp Pulse Resp B/P (MAP) Pulse Ox O2 Delivery O2 Flow Rate FiO2 11/25/17 08:00 97.9 101 20 110/69 94 97.9 11/25/17 07:50 Room Air 21 11/25/17 07:50 105 20 Room Air 21 11/25/17 04:51 98.0 11/25/17 04:26 Room Air 11/25/17 04:00 98.0 87 18 111/71 92 Room Air 98.0 11/25/17 03:52 97.7 11/25/17 00:00 97.7 94 19 98/50 94 Room Air 97.7 11/24/17 21:54 Room Air 11/24/17 21:15 97.9 11/24/17 21:11 96 107/65 11/24/17 21:00 97 22 Nasal Cannula 2.0 28 11/24/17 21:00 Nasal Cannula 2.0 28 11/24/17 20:00 97.9 96 20 93/54 100 Room Air 97.9 11/24/17 15:55 97.7 101 18 108/96 96 97.7 11/24/17 13:09 97.7 11/24/17 12:00 97.7 93 18 100/58 94 97.7 I&O Intake and Output 11/24/17 11/25/17 19:00 07:00 Intake Total 1195 ml 550.000 ml Output Total 900 ml Balance 295 ml 550.000 ml Intake Oral 620 ml IV Total 575 ml 550.000 ml Output Urine Total 900 ml # Voids 4 # Bowel Movements 1 Wound: clean Drains: none Cardiovascular: RSR Respiratory: clear Abdomen: soft, non-tender Extremities: no tenderness, no cyanosis, other - larger area of KS on medial aspect of right leg. cellulitis much improved. Laboratory Tests Test 11/25/17 05:45 White Blood Count 7.5 K/UL (4.8-10.8) Red Blood Count 4.23 M/UL (4.70-6.10) L Hemoglobin 11.9 G/DL (14.2-18.0) L Hematocrit 37.8 % (42.0-52.0) L Mean Corpuscular Volume 89 FL (80-99) Mean Corpuscular Hemoglobin 28.2 PG (27.0-31.0) Mean Corpuscular Hemoglobin Concent 31.6 G/DL (32.0-36.0) L Red Cell Distribution Width 13.2 % (11.6-14.8) Platelet Count 269 K/UL (150-450) Mean Platelet Volume 6.2 FL (6.5-10.1) L Neutrophils (%) (Auto) 66.7 % (45.0-75.0) Lymphocytes (%) (Auto) 17.7 % (20.0-45.0) L Monocytes (%) (Auto) 8.8 % (1.0-10.0) Eosinophils (%) (Auto) 5.7 % (0.0-3.0) H Basophils (%) (Auto) 1.1 % (0.0-2.0) Sodium Level 136 MMOL/L (136-145) Potassium Level 4.2 MMOL/L (3.5-5.1) Chloride Level 103 MMOL/L (98-107) Carbon Dioxide Level 29 MMOL/L (21-32) Anion Gap 4 mmol/L (5-15) L Blood Urea Nitrogen 10 mg/dL (7-18) Creatinine 0.9 MG/DL (0.55-1.30) Estimat Glomerular Filtration Rate > 60 mL/min (>60) Glucose Level 93 MG/DL (74-106) Calcium Level 8.1 MG/DL (8.5-10.1) L Plan Problems: (1) Kaposis sarcoma Assessment & Plan: 41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 possible superimposed infection as well. mild cellulitis in leg and some edema. afebrile, HD stable, leukocytosis improving. exam much improved. minimal edema now. improved range of motion. -explained to patient how important it is for him to follow up with oncologist as an outpatient for treatment of this as he has been instructed two months ago -explained that abx would help with infection if superimposed but underlying etiology is the tumor -no acute surgical intervention needed -no biopsy needed given had one two months ago and diagnosis made at [facility] to d/c from surgical standpoint. follow up with oncologist as an outpatient. Curtis Dover November 25, 2017 11:32
[2017-11-25 12:00] VITALS: BP 104/67
[2017-11-25] MEDS: Bactrim-DS 1 tab ORAL SCH (12:11)
--- NOTE | 2017-11-25 12:48 | General Progress Note ---
Assessment/Plan Problem List: (1) Cellulitis ICD Codes: L03.90 - Cellulitis, unspecified SNOMED: 488179455 (2) Dyspnea ICD Codes: R06.00 - Dyspnea, unspecified SNOMED: 903801378 (3) Hyponatremia ICD Codes: E87.1 - Hypo-osmolality and hyponatremia SNOMED: 15360163 (4) Leg pain ICD Codes: M79.606 - Pain in leg, unspecified SNOMED: 27779130 (5) Kaposis sarcoma ICD Codes: C46.9 - Kaposi's sarcoma, unspecified SNOMED: 268955331 (6) Allergic reaction ICD Codes: T78.40XA - Allergy, unspecified, initial encounter SNOMED: 223993996, 86724793, 384382218 (7) Cellulitis of right lower extremity ICD Codes: L03.115 - Cellulitis of right lower limb SNOMED: 899318122 (8) Medical clearance for incarceration ICD Codes: Z00.8 - Encounter for other general examination SNOMED: 445219779, 55806718, 794352263 (9) HIV/AIDS (10) Hyperkalemia ICD Codes: E87.5 - Hyperkalemia SNOMED: 20294712 (11) ROSA ISELA (acute kidney injury) ICD Codes: N17.9 - Acute kidney failure, unspecified SNOMED: 32896755 (12) Sepsis ICD Codes: A41.9 - Sepsis, unspecified organism SNOMED: 48551503 (13) Non-compliance ICD Codes: Z91.19 - Patient's noncompliance with other medical treatment and regimen SNOMED: 3163047 (14) Homeless ICD Codes: Z59.0 - Homelessness SNOMED: 62060373 (15) Pneumonia ICD Codes: J18.9 - Pneumonia, unspecified organism SNOMED: 066963213 Status: stable Assessment/Plan ID, general surgery, heme/onc consulted MRI tib/fib reviewed--shows focal 15 x 7 x 16 mm edema/enhancement in the lateral aspect of the proximal tibial metadiaphysis extending to the cortex, which may be osteomyelitis, neoplasm, or other etiology. Will f/u bone scan to r/o osteomyelitis, ESR, CRP per ID. Empiric vanco, ceftriaxone azithro per ID Cont bactrim and diflucan for AIDS ppx given CD4 < 200 F/u serial CXR F/u wound culture--shows MRSA F/u blood cultures F/u serologies sent by ID including crypto F/u CD4 count, viral load -- CD4 100 Cont HAART: norvir, viread and prezista Pain control, bowel regimen Supportive care Will need close outpt follow-up with heme/onc for KS treatment and ID for HIV/ AIDS treatment SW consulted for homelessness DVT Prophylaxis: HSQ Code Status: Full Hospital Classification Declaration: Based on this initial evaluation, and depending on the patient's clinical course, I anticipate that this patient will require hospitalization for 1-2 days for sepsis, RLE cellulitis, and close respiratory/hemodynamic monitoring. Disposition: Once the patient is stable to leave the hospital, I anticipate the patient will likely be discharged to the following environment: home vs home w/ hh I spent 40 minutes on this patient's case, and >50% was dedicated to counseling and/or care coordination. Discussed with patient/family, nursing staff, SW/CM, ID, heme/onc regarding clinical status, treatment course, and disposition planning. Time of note may not reflect time of encounter. Subjective Date patient seen: November 25, 2017 Time patient seen: 12:40 Allergies: Coded Allergies: NO KNOWN DRUG ALLERGIES (Unverified Allergy, Unknown, 08/11/14) Uncoded Allergies: MILDEW (Allergy, Unknown, 09/13/17) Subjective - no acute o/n events - AF, HDS - continues to report cough. denies sob, cp Objective Last 24 Hour Vital Signs Date Time Temp Pulse Resp B/P (MAP) Pulse Ox O2 Delivery O2 Flow Rate FiO2 11/25/17 12:00 97.9 109 18 104/67 98 Room Air 97.9 11/25/17 08:00 97.9 101 20 110/69 94 97.9 11/25/17 07:50 Room Air 21 11/25/17 07:50 105 20 Room Air 21 11/25/17 04:51 98.0 11/25/17 04:26 Room Air 11/25/17 04:00 98.0 87 18 111/71 92 Room Air 98.0 11/25/17 03:52 97.7 11/25/17 00:00 97.7 94 19 98/50 94 Room Air 97.7 11/24/17 21:54 Room Air 11/24/17 21:15 97.9 11/24/17 21:11 96 107/65 11/24/17 21:00 97 22 Nasal Cannula 2.0 28 11/24/17 21:00 Nasal Cannula 2.0 28 11/24/17 20:00 97.9 96 20 93/54 100 Room Air 97.9 11/24/17 15:55 97.7 101 18 108/96 96 97.7 11/24/17 13:09 97.7 Intake and Output 11/24/17 11/25/17 19:00 07:00 Intake Total 1195 ml 550.000 ml Output Total 900 ml Balance 295 ml 550.000 ml Intake Oral 620 ml IV Total 575 ml 550.000 ml Output Urine Total 900 ml # Voids 4 # Bowel Movements 1 Laboratory Tests 11/25/17 05:45: White Blood Count 7.5, Red Blood Count 4.23L, Hemoglobin 11.9L, Hematocrit 37.8L , Mean Corpuscular Volume 89, Mean Corpuscular Hemoglobin 28.2, Mean Corpuscular Hemoglobin Concent 31.6L, Red Cell Distribution Width 13.2, Platelet Count 269, Mean Platelet Volume 6.2L, Neutrophils (%) (Auto) 66.7, Lymphocytes (%) (Auto) 17.7L, Monocytes (%) (Auto) 8.8, Eosinophils (%) (Auto) 5.7H, Basophils (%) (Auto) 1.1, Sodium Level 136, Potassium Level 4.2, Chloride Level 103, Carbon Dioxide Level 29, Anion Gap 4L, Blood Urea Nitrogen 10, Creatinine 0.9, Estimat Glomerular Filtration Rate > 60, Glucose Level 93, Calcium Level 8.1L 11/25/17 11:15: Vancomycin Level Trough [Pending] Height (Feet): 5 Height (Inches): 9.00 Weight (Pounds): 150 General Appearance: no apparent distress, alert, lethargic EENT: PERRL/EOMI, normal ENT inspection Neck: non-tender, normal alignment, supple Cardiovascular: normal peripheral pulses, normal rate, regular rhythm Respiratory/Chest: chest wall non-tender, no respiratory distress, rhonchi - bilaterally Abdomen: normal bowel sounds, non tender, soft Extremities: normal range of motion 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
[2017-11-25 16:14] VITALS: BP 103/60
[2017-11-25] MEDS: cefTRIAXone 1 GM in D5W 50 ML IVPB SCH (17:18)
--- NOTE | 2017-11-25 17:18 | Diagnostic Imaging Report ---
Indication: Cellulitis Technique: 26.4 mCi of technetium 99 M-MDP was injected intravenously. A triple phase bone scan was then performed with blood flow, blood pool and delayed planar imaging in the region of interest. Several spot images were also obtained. Comparison: Correlation made to concurrent MRI of the right tibia Findings: . There is asymmetric increased radiotracer activity in the right leg on blood pool and immediate images compatible with a cellulitis. On delayed images there are 2 small foci of increased radiotracer uptake in the proximal tibia on the right. These correspond with the area of abnormality noted on MRI. IMPRESSION: Abnormal asymmetric uptake in the soft tissues of the right leg on blood pool and immediate images compatible with a cellulitis. Small foci of abnormal radiotracer uptake in the proximal tibia on delayed images, likely possibly corresponding to the area of abnormality on MRI. This may represent an area of osteomyelitis or neoplasm, especially since there is history/concern for Kaposi's sarcoma. Scintigraphy with sequential thallium and gallium scanning may be helpful for further evaluation, as gallium uptake is usually negative Kaposi's but positive in infection/additional malignancies.
[2017-11-25] MEDS ORDERED: DOXYCYCLINE MO100 M2 PO (17:42)
[2017-11-25] MEDS ORDERED: LEVAQUIN750 MG ORAL (17:42)
[2017-11-25 20:45] VITALS: BP 113/68
[2017-11-25] MEDS ORDERED: D5NS 1000ml IV ONE (20:59)
[2017-11-25] MEDS ORDERED: Vancomycin 1gm in Dextrose 275ml IVPB SCH (22:00)
--- NOTE | 2017-12-02 08:25 | Discharge Summary ---
Discharge Summary Hospital Course Date of Admission November 22, 2017 at 18:18 Date of Discharge November 25, 2017 at 21:00 Admitting Diagnosis lower extrimity cellulitis HPI Kaushal Jenkins is a 41 year old male who was admitted on November 22, 2017 at 18: 18 for Lower Extremity Cellulitis 41y/o male with pmh of HIV/AIDS (noncompliant with HAART) who presents with RLE swelling/pain/redness. Pt states that 8 months he noted wound/skin lesions on RLE which has been progressively worsening. He states that he has been given antibiotics such as keflex for it but bactrim IV works the best. Pt notes having had a biopsy of skin lesions and was diagnosed with Kaposi Sarcoma (pt does have path report). C/o subjective fevers/chills. Denies n/v, d/c, chest pain, SOB, abd pain. In ED, pt had MRI tib/fib which showed focal 15 x 7 x 16 mm edema/enhancement in the lateral aspect of the proximal tibial metadiaphysis extending to the cortex, which may be osteomyelitis, neoplasm, or other etiology. There was concern for sepsis given leukocytosis, tachycardia. Pt given vanco. Consultations ID, dr. thomas general surgery, Dr. Dover oncology, Dr. Powell Procedures none Hospital Course Patient was admitted for further workup of cellulitis. ID, general surgery, and oncology consultations were requested. Patient was started on IV vancomycin, ceftriaxone, and azithro. Bactrim and diflucan were continued for AIDS ppx given CD4 < 200. Patient's CD4 count was noted to be 100. Patient was also continued on HAART meds. MRI tib/fib showed focal 15 x 7 x 16 mm edema/ enhancement in the lateral aspect of the proximal tibial metadiaphysis extending to the cortex, which may be osteomyelitis, neoplasm, or other etiology. Bone scan was done which revealed increased uptake which could mean infection vs. neoplasm. Per oncology and ID, this was thought to be due to his kaposi sarcoma and not due to osteomyelitis or cellulitis. General surgery also inputted their recommendations of no surgical [id number] but to start chemotherapy for the KS. Per oncology, patient is to start chemotherapy for KS as outpatient with close follow up. Wound culture of the infected leg showed MRSA. Blood cultures were negative and patient was therefore stable to be discharged to the SNF for further rehab. Addendum: Patient was discharged on 11/25. On 11/26, lab called for critical results of positive crytococcus antigen with serum titers 1:2500. This was communicated with the charge nurse at the SNF the patient resides in and results were faxed. Orders were given to send patient to the nearest hospital for lumbar puncture and r/o cryptococcal meningitis. Discharge Medications Continued Medications: Dapsone* (Dapsone*) 100 Mg Tablet 100 MG ORAL DAILY, TAB 0 Refills (This prescription has been renewed) Darunavir Ethanolate* (Prezista*) 600 Mg Tablet 800 MG ORAL DAILY, TAB (This prescription has been renewed) Diphenhydramine Hcl* (Diphenhydramine Hcl*) 25 Mg Capsule 25 MG ORAL Q6H PRN for Itching, #30 CAP 0 Refills Docusate Sodium* (Colace*) 100 Mg Capsule 100 MG ORAL DAILY, CAP (This prescription has been renewed) Doxycycline Monohydrate (Doxycycline Monohydrate) 100 Mg Tablet 100 MG PO BID for 7 Days, TAB (This prescription has been renewed) Ferrous Sulfate* (Ferrous Sulfate*) 325 Mg Tablet 325 MG ORAL BID, #30 TAB 0 Refills (This prescription has been renewed) Fluconazole (Fluconazole) 100 Mg Tablet 200 MG ORAL DAILY, #7 TAB 0 Refills (This prescription has been renewed) Levofloxacin* (Levaquin*) 750 Mg Tablet 750 MG ORAL DAILY for 7 Days, TAB (This prescription has been renewed) Prednisone* (Prednisone*) 20 Mg Tablet 40 MG ORAL DAILY, #10 TAB Ritonavir* (Norvir*) 100 Mg Capsule 100 MG ORAL DAILY, #60 CAP (This prescription has been renewed) Tenofovir Disoproxil Fumarate* (Viread*) 300 Mg Tablet 300 MG ORAL DAILY, #30 TAB 0 Refills (This prescription has been renewed) Trimethoprim/Sulfamethoxazole 160/800* (Bactrim Ds Tablet*) 1 Each Tablet 1 TAB ORAL DAILY, TAB (This prescription has been renewed) Discharge Condition Upon Discharge: improving Discharge Disposition Patient was discharged to SNF in [place] Discharge Diagnoses: (1) Cellulitis (2) Dyspnea (3) Dyspnea (4) Hyponatremia (5) Leg pain (6) Kaposis sarcoma (7) Allergic reaction (8) Medical clearance for incarceration (9) Kaposi sarcoma (10) Hyperkalemia (11) HIV/AIDS (12) ROSA ISELA (acute kidney injury) (13) Non-compliance (14) Pneumonia (15) Sepsis Arminda Hodges NP December 02, 2017 08:25
== END 2017-11-25 21:00 | DRG 975 ==
LOC: EMR 17:34 → 4W 18:18 → EDBEDREQ 18:24
DX: A41.9 Sepsis, unspecified organism (principal); B20 Human immunodeficiency virus [HIV] disease; L03.115 Cellulitis of right lower limb; J18.9 Pneumonia, unspecified organism; C46.0 Kaposi's sarcoma of skin; N17.9 Acute kidney failure, unspecified; E87.5 Hyperkalemia; Z91.14 Patient's other noncompliance with medication regimen; D63.8 Anemia in other chronic diseases classified elsewhere; B95.62 Methicillin resistant Staphylococcus aureus infection as the cause of diseases classified elsewhere; M79.604 Pain in right leg
CPT/HCPCS: 36415; 71045; 76770; 78315; 80048; 80053; 80076; 80202; 81003; 82164; 82570; 83605; 83615; 83735; 84300; 85025; 86360; 86738; 87040; 87070; 87081; 87181; 87205; 87449; 87536; 94640; 94664; 99285; A9585; J7620